=== PATIENT | male | born 1985 ===

== ENCOUNTER 2017-01-12 01:06 | Emergency (ER) | payer OTHER ==
[2017-01-12 01:06] VITALS: BMI 22.6
[2017-01-12 01:59] VITALS: BP 134/70; PULSE 108; RESP 16; TEMP 98.6; O2SAT 98
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
== END 2017-01-12 03:35 ==
LOC: H.ER 01:06
DX: F32.9 Major depressive disorder, single episode, unspecified (principal)

== ENCOUNTER 2017-01-22 14:25 | Inpatient (IN) | payer MEDICAID, OTHER ==
[2017-01-22 14:26] VITALS: BMI 22.6
[2017-01-22 16:14] LABS: BASO # 0.1 K/uL (0.0-0.2); EOS # 0.4 K/uL (0.0-0.7); EOS % 3.9 % (0.0-4.0); HEMATOCRIT 45.7 % (35.0-51.0); LYMPH # 2.1 K/uL (1.0-4.3); MEAN CELL VOLUME 87.9 fl (80.0-94.0); MEAN CORPUSCULAR HEMOGLOBIN 29.5 pg (27.0-31.0); MEAN CORPUSCULAR HGB CONC 33.5 g/dL (33.0-37.0); MEAN PLATELET VOLUME 9.3 fl (7.2-11.7); MONO # 0.7 K/uL (0.0-0.8); NEUT # 5.9 K/uL (1.8-7.0); NEUT % 64.1 % (50.0-75.0); NRBC % 0.2 % (0.0-0.0); WHITE BLOOD COUNT 9.2 K/uL (4.8-10.8)
--- NOTE | 2017-01-22 16:21 | ED PDOC ---
HPI: Psych/Substance Abuse Time Seen by Provider: 01/22/17 15:12 Chief Complaint (Nursing): Psychiatric Evaluation Chief Complaint (Provider): Psychiatric Evaluation History Per: Patient History/Exam Limitations: no limitations Onset/Duration Of Symptoms: Days (x 3) Current Symptoms Are (Timing): Still Present Associated Symptoms: Anger, Depression, Suicidal Thoughts Additional Complaint(s): Jose is a 31 y/o male with no past medical history who states for the past several days hes been feeling depressed. Patient admits he gets angry at his family and bangs on handley. For the past 2 days hes been feeling like ending his life, however he has no specific plan. States when he feels this way, he usually drinks beer. Denies any drug use or smoking. He denies any past medical or psychiatric history, but was seen here for similar symptoms. He states at prior visits he did not express himself fully. He is not taking any medications. PMD: Dr. Horacio Weems Past Medical History Reviewed: Historical Data, Nursing Documentation, Vital Signs Vital Signs: Last Vital Signs Temp 98.8 F 01/22/17 14:48 Pulse 106 H 01/22/17 14:48 Resp 20 01/22/17 14:48 BP 152/98 H 01/22/17 14:48 Pulse Ox 96 01/22/17 14:48 - Medical History PMH: Depression, Fractures Denies: Diabetes, Hepatitis, HIV, HTN, Chronic Kidney Disease, Seizures, Sexually Transmitted Disease - Family History Family History: States: Unknown Family Hx - Social History Current smoker - smoking cessation education provided: No Alcohol: < 2 Drinks/Day Drugs: Denies - Immunization History Hx Tetanus Toxoid Vaccination: No - Home Medications Home Medications: Ambulatory Orders Medication Instructions Recorded Citalopram [celEXA] 20 mg PO DAILY #30 tab 10/27/15 Cephalexin [cephalexin] 500 mg PO Q6 #28 cap 01/21/16 Ibuprofen [Motrin] 600 mg PO Q6 #20 tab 02/08/16 - Allergies Allergies/Adverse Reactions: Allergies Allergy/AdvReac Type Severity Reaction Status Date / Time No Known Allergies Allergy Verified 01/12/17 01:45 Review of Systems ROS Statement: Except As Marked, All Systems Reviewed And Found Negative Psych: Positive for: Depression, Suicidal ideation (with no plan) Physical Exam - Reviewed Nursing Documentation Reviewed: Yes Vital Signs Reviewed: Yes - Physical Exam Appears: Positive for: Non-toxic, No Acute Distress Head Exam: Positive for: ATRAUMATIC, NORMAL INSPECTION, NORMOCEPHALIC Skin: Positive for: Normal Color, Warm, Dry Eye Exam: Positive for: EOMI, Normal appearance, PERRL Neck: Positive for: Normal, Supple Cardiovascular/Chest: Positive for: Regular Rate, Rhythm. Negative for: Murmur Respiratory: Positive for: Normal Breath Sounds. Negative for: Accessory Muscle Use, Respiratory Distress Gastrointestinal/Abdominal: Positive for: Normal Exam, Soft. Negative for: Tenderness Extremity: Positive for: Normal ROM, Capillary Refill (< 2 sec). Negative for: Pedal Edema, Deformity Neurologic/Psych: Positive for: Alert, Oriented (x3), Mood/Affect (Flat). Negative for: Motor/Sensory Deficits - Laboratory Results Result Diagrams: 01/22/17 16:10 01/22/17 16:09 - ECG ECG: Positive for: Interpreted By Me, Viewed By Me Interpretation Of ECG: Normal sinus rhythm at 92 bpm, no ST elevation. No T wave abnormalities. O2 Sat by Pulse Oximetry: 96 (RA) Pulse Ox Interpretation: Normal - Radiology X-Ray: Read By Radiologist X-Ray Interpretation: No Acute Disease Medical Decision Making Medical Decision Making: Time: 15:38 Initial Plan: --EKG --Alcohol serum --Urine drug screen --CMP --CBC --Chest X-Ray --Urinalysis --placed on 1:1 observation --Pending crisis evaluation CHEST X-RAY Report Date : 01/22/2017 17:16:35 My Comment : HISTORY: psych clearance COMPARISON: Chest x-ray performed 10/17/15 TECHNIQUE: Chest PA and lateral FINDINGS: LUNGS: No focal consolidation. Please note that chest x-ray has limited sensitivity for the detection of pulmonary masses. PLEURA: No significant pleural effusion identified. No definite pneumothorax . CARDIOVASCULAR: The cardiomediastinal silhouette appears within normal limits of size. OSSEOUS STRUCTURES: No acute osseous abnormality identified. VISUALIZED UPPER ABDOMEN: Unremarkable. OTHER FINDINGS: None. IMPRESSION: No focal consolidation, significant pleural effusion, or definite pneumothorax identified. Time: 17:25 Discussed with pack worker and patient is to be admitted inpatient for diagnosis of depression, per Dr. Cruz. Labs reviewed, and are grossly normal. Still pending UDS. Chest X-Ray negative. Time: 18:30 Labs reviewed, toxicology is negative. Urine shows RBC present. Patient evaluated by crisis who advises patient to be admitted under Dr. Cruz. Patient is medically stable for psychiatric admission. Admission orders placed. Scribe Attestation: Documented by Nakia Romero, acting as a scribe for Vielka Sherman PA-C Provider Scribe Attestation: All medical record entries made by the Scribe were at my direction and personally dictated by me. I have reviewed the chart and agree that the record accurately reflects my personal performance of the history, physical exam, medical decision making, and the department course for this patient. I have also personally directed, reviewed, and agree with the discharge instructions and disposition. Disposition - Clinical Impression Clinical Impression: Depression - Patient ED Disposition Is Patient to be Admitted: Yes Counseled Patient/Family Regarding: Studies Performed - Disposition Disposition Time: 17:47 Condition: STABLE - Pt Status Changed To: Hospital Disposition Of: Inpatient - Admit Certification Admit to Inpatient:: After my assessment, the patient will require hospitalization for at least two midnights. This is because of the severity of symptoms shown, intensity of services needed, and/or the medical risk in this patient being treated as an outpatient. - POA Present On Arrival: None
[2017-01-22 16:43] LABS: ALCOHOL SERUM < 10 mg/dl (0-10); ALKALINE PHOSPHATASE 79 U/L (38-126); ALT/SGPT 37 U/L (21-72); AST/SGOT 24 U/L (17-59); BILIRUBIN,TOTAL 0.4 mg/dl (0.2-1.3); BLOOD UREA NITROGEN 15 mg/dl (9-20); CALCIUM 10.3 mg/dL (8.4-10.2); CARBON DIOXIDE 26 mmol/L (22-30); CHLORIDE 103 mmol/L (98-107); GFR AFRICAN-AMERICAN > 60; GLUCOSE,RANDOM 92 mg/dL (75-110); SODIUM 142 mmol/l (132-148); TOTAL PROTEIN 8.5 G/DL (6.3-8.2)
[2017-01-22 16:49] LABS: ALB/GLOB RATIO 1.4 (1.0-2.1)
--- NOTE | 2017-01-22 17:18 | RAD ---
HISTORY: psych clearance COMPARISON: Chest x-ray performed 10/17/15 TECHNIQUE: Chest PA and lateral FINDINGS: LUNGS: No focal consolidation. Please note that chest x-ray has limited sensitivity for the detection of pulmonary masses. PLEURA: No significant pleural effusion identified. No definite pneumothorax . CARDIOVASCULAR: The cardiomediastinal silhouette appears within normal limits of size. OSSEOUS STRUCTURES: No acute osseous abnormality identified. VISUALIZED UPPER ABDOMEN: Unremarkable. OTHER FINDINGS: None. IMPRESSION: No focal consolidation, significant pleural effusion, or definite pneumothorax identified.
[2017-01-22 18:17] LABS: RBC URINE 6 /hpf (0-3); URINE BACTERIA RARE (<OCC); URINE BILIRUBIN NEGATIVE (NEGATIVE); URINE BLOOD SMALL (NEGATIVE); URINE COLOR YELLOW (YELLOW); URINE GLUCOSE (UA) NEG (Normal); URINE KETONE NEGATIVE (NEGATIVE); URINE LEUKOCYTE ESTERASE NEG Leu/uL (Negative); URINE PROTEIN NEGATIVE (NEGATIVE); URINE UROBILINOGEN 0.2-1.0 mg/dL (0.2-1.0); WBC URINE < 1 /hpf (0-5)
[2017-01-22] MEDS ORDERED: Magnesium Hydroxide Susp 30 ml UD PO PRN (20:44)
[2017-01-22] MEDS ORDERED: Alum-Mag Hydrox-Simethicone Susp (30 mL) PO PRN (20:44)
[2017-01-22] MEDS ORDERED: DiphenhydrAMINE 50 mg/ml Inj IM PRN (20:44)
--- NOTE | 2017-01-22 21:18 | PCM.BM ---
Addendum entered and electronically signed by Marian Calloway MSW 02/01/17 17: 18: Treatment Plan Review - Problem Alteren Sleep Pattern Time Initiated: 21:16 Medication Non-adherence Time Initiated: 21:17 Original Note: <Mee Gilliam - Last Filed: 01/22/17 21:15> Treatment Plan Problems - Problems identified on initial assessmt Alteren Sleep Pattern Date Initiated: 01/22/17 Time Initiated: 21:16 Assessment reference: NA Status: Active Medication Non-adherence Date Initiated: 01/22/17 Time Initiated: 21:17 Assessment reference: NA Status: Active Treatment assets and liabiliti Patient Assests: adapts well, self-reliant, good support system, negotiates basic needs Patient Liabilities: substance abuse, other (noncompliance with meds) - Milieu Protocol Maintain good personal hygiene: daily Assist patient to perform ADL's, every shift Encourage regular showers, every shift Remind patient to perform daily oral care Maintain personal safety: every shift Educate patient to report safety concerns to staff, every shift Monitor environment for contraband/sharps Medication safety: Monitor for expected outcome, potential side effects: every shift, Assess barriers to learning: daily, Assess readiness for medication education: every shift <Jaison Nelson - Last Filed: 01/25/17 15:20> Discharge/Continuing Care - Additional Comments 01/25/17 15:20 Pt kept reporting that he felt that he still needed additional help and more intense therapy than what PHP was willing to provide. Pt reported that he does not want to be aggressive anymore and wants to work on himself. - Treatment Team Participation Was Patient/Family/SO present at Treatment Team Meeting: Yes <Marian Calloway - Last Filed: 02/01/17 17:18> Treatment assets and liabiliti Patient Assests: adapts well, cooperative, self-reliant, ADL independent, physically healthy, good support system, negotiates basic needs Patient Liabilities: relationship conflicts, substance abuse, auditory impairment, other (noncompliance with meds-learning disability) Family Contact Family involvement: Family/SO is involved Family contact: Patient agrees to contact, Family has been contacted by patient , Telephone contact initiated by staff Family contact name: Ashley (mother) Family contacted how many times per week?: 2 Family contact comment: [phone]. Child Psychology Teacher placed call to patients mother to discuss patients progress on 3NP, collect further collateral and address family concerns. Child Psychology Teacher left brief message on unidentified voicemail requestin return phone call. Child Psychology Teacher awaiting response. - Outside Agency Agency 1 Care involvment: Following patient during stay, Other Agency contact name: [facility] ([place]) Agency contact number: [phone] - Goals for Treatment Patient goals for treatment: Patient to continue stabilization on 3NP through medication management and group/supportive therapy. Patient to be encouraged to attend groups regularly to promote self-awareness, sobriety, and improve insight , coping skills and self-esteem. Patient to be provided with referral for appropriate level of aftercare to reduce risk of future hospitalizations and ensure safety in the community. Discharge/Continuing Care - Education Needs Education Needs: Family Medication, Family Coping Skills, Family Anger Management skills, Family Community resources, Family Aftercare Safety Plan, Patient Medication, Patient Coping Skills, Patient Anger Management skills, Patient Community resources, Patient Aftercare Safety Plan - Discharge Discharge Criteria: Tolerates medication w/o severe side effects, Free of Suicidal thoughts, Free of agitation, Normal sleep pattern, Ability to care for self, Reduction of target symptoms Discharge to:: Home, With Family <Nancy Palomino - Last Filed: 02/02/17 09:12> - Diagnosis (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
[2017-01-22] MEDS ORDERED: Pneumococcal 23-Valent Vaccine IM ONE (22:33)
[2017-01-22 22:56] VITALS: O2SAT 96
[2017-01-23 07:08] LABS: CHOLESTEROL 221 mg/dL (0-199)
--- NOTE | 2017-01-23 07:45 | CARD ---
APPROVED REPORT EKG Measurement Heart [id number] <Conclusion> Normal sinus rhythm Normal ECG
--- NOTE | 2017-01-23 08:42 | CP.PCM.CON ---
Addendum entered and electronically signed by Alejandra Hernández MD 01/23/17 09: 25: Original Note: History of Present Illness - History of Present Illness History of Present Illness: Hospitalist consult note Jose is a 31 y/o male with no PMH who was admitted due to been feeling depressed for the past several days. Patient admits he gets angry with his family and also reports hes been feeling like ending his life, however he has no specific plan. Denies any drug use or smoking. He denies any past medical but admits several suicidal attempts in the past. Denies taking any medication , also denies recent fever, nausea, vomiting, chest pain, palpitations, sob, edema, headache, abdominal pain or any other pain. No urinary symptoms, diarrhea or constipation. PMH: none FMH: none Hosp: previous similar episodes Meds: denies Allergies: NKDA SH: denies tobacco, illicit drugs; etoh occasional. Review of Systems - Review of Systems Review of Systems: Reviewed and negative except as HPI Past Patient History - Infectious Disease Hx of Infectious Diseases: None - Past Medical History & Family History Past Medical History?: No - Past Social History Alcohol: < 2 Drinks/Day Drugs: Denies - PSYCHIATRIC Hx Depression: Yes - SURGICAL HISTORY Hx Surgeries: Yes Hx Open Reduction Internal Fixation: Yes (hip/femur fracture) - ANESTHESIA Hx Anesthesia: Yes Hx Anesthesia Reactions: No Hx Malignant Hyperthermia: No Meds Allergies/Adverse Reactions: Allergies Allergy/AdvReac Type Severity Reaction Status Date / Time No Known Allergies Allergy Verified 01/12/17 01:45 - Medications Medications: Current Medications Acetaminophen (Tylenol 325mg Tab) 650 mg PO Q4 PRN PRN Reason: Pain, moderate (4-7) Al Hydrox/Mg Hydrox/Simethicone (Maalox Plus 30 Ml) 30 ml PO Q4 PRN PRN Reason: Dyspepsia Diphenhydramine HCl (Benadryl) 50 mg IM Q6 PRN PRN Reason: Extrapyramidal S/S Unable PO Diphenhydramine HCl (Benadryl) 50 mg PO Q6 PRN PRN Reason: Extrapyramidal Symptoms Diphenhydramine HCl (Benadryl) 50 mg PO HS PRN PRN Reason: Sleep Haloperidol (Haldol) 5 mg PO Q4 PRN PRN Reason: Agitation Haloperidol Lactate (Haldol) 5 mg IM Q4 PRN PRN Reason: Agitation, Unable to Take PO Lorazepam (Ativan) 2 mg IM Q4 PRN PRN Reason: Anxiety/Agitation,Unable PO Lorazepam (Ativan) 1 mg PO Q4 PRN PRN Reason: Anxiety/Agitation Magnesium Hydroxide (Milk Of Magnesia) 30 ml PO HS PRN PRN Reason: Constipation Physical Exam - Constitutional Appears: No Acute Distress - Head Exam Head Exam: ATRAUMATIC, NORMOCEPHALIC - Eye Exam Eye Exam: EOMI, PERRL - Respiratory Exam Respiratory Exam: Clear to Auscultation Bilateral, NORMAL BREATHING PATTERN - Cardiovascular Exam Cardiovascular Exam: REGULAR RHYTHM, +S1, +S2 - GI/Abdominal Exam GI & Abdominal Exam: Normal Bowel Sounds, Soft. absent: Distended, Tenderness - Extremities Exam Extremities exam: Negative for: calf tenderness, pedal edema - Skin Skin Exam: Dry, Normal Color, Warm Results - Vital Signs Recent Vital Signs: Last Vital Signs Temp 98.2 F 01/22/17 21:47 Pulse 70 01/22/17 21:47 Resp 16 01/22/17 21:47 BP 141/94 H 01/22/17 21:47 Pulse Ox 96 01/22/17 23:06 - Labs Result Diagrams: 01/22/17 16:10 01/22/17 16:09 Labs: Laboratory Results - last 24 hr 01/22/17 01/22/17 01/22/17 16:09 16:10 17:57 WBC 9.2 RBC 5.20 Hgb 15.3 Hct 45.7 MCV 87.9 MCH 29.5 MCHC 33.5 RDW 13.0 Plt Count 277 MPV 9.3 Neut % (Auto) 64.1 Lymph % (Auto) 23.0 [place] % (Auto) 8.0 Eos % (Auto) 3.9 Baso % (Auto) 1.0 Neut # 5.9 Lymph # 2.1 [place] # 0.7 Eos # 0.4 Baso # 0.1 Sodium 142 Potassium 4.0 Chloride 103 Carbon Dioxide 26 Anion Gap 17 BUN 15 Creatinine 0.8 Est GFR ( Amer) > 60 Est GFR (Non-Af Amer) > 60 Random Glucose 92 Calcium 10.3 H Total Bilirubin 0.4 AST 24 ALT 37 Alkaline Phosphatase 79 Total Protein 8.5 H Albumin 5.0 Globulin 3.6 Albumin/Globulin Ratio 1.4 Triglycerides Cholesterol LDL Cholesterol Direct HDL Cholesterol Urine Color Urine Clarity Urine pH Ur Specific [place] Urine Protein Urine Glucose (UA) Urine Ketones Urine Blood Urine Nitrate Urine Bilirubin Urine Urobilinogen Ur Leukocyte Esterase Urine RBC (Auto) Urine Microscopic WBC Ur Squamous Epith Cells Urine Bacteria Urine Opiates Screen Negative Urine Methadone Screen Negative Ur Barbiturates Screen Negative Ur Phencyclidine Scrn Negative Ur Amphetamines Screen Negative U Benzodiazepines Scrn Negative U Oth Cocaine Metabols Negative U Cannabinoids Screen Negative Alcohol, Quantitative < 10 01/22/17 01/23/17 17:57 06:45 WBC RBC Hgb Hct MCV MCH MCHC RDW Plt Count MPV Neut % (Auto) Lymph % (Auto) [place] % (Auto) Eos % (Auto) Baso % (Auto) Neut # Lymph # [place] # Eos # Baso # Sodium Potassium Chloride Carbon Dioxide Anion Gap BUN Creatinine Est GFR ( Amer) Est GFR (Non-Af Amer) Random Glucose Calcium Total Bilirubin AST ALT Alkaline Phosphatase Total Protein Albumin Globulin Albumin/Globulin Ratio Triglycerides 125 Cholesterol 221 H LDL Cholesterol Direct 105 HDL Cholesterol 92 H Urine Color Yellow Urine Clarity Clear Urine pH 6.0 Ur Specific [place] 1.019 Urine Protein Negative Urine Glucose (UA) Neg Urine Ketones Negative Urine Blood Small Urine Nitrate Negative Urine Bilirubin Negative Urine Urobilinogen 0.2-1.0 Ur Leukocyte Esterase Neg Urine RBC (Auto) 6 H Urine Microscopic WBC < 1 Ur Squamous Epith Cells 1 Urine Bacteria Rare Urine Opiates Screen Urine Methadone Screen Ur Barbiturates Screen Ur Phencyclidine Scrn Ur Amphetamines Screen U Benzodiazepines Scrn U Oth Cocaine Metabols U Cannabinoids Screen Alcohol, Quantitative Assessment & Plan - Assessment and Plan (Free Text) Assessment: 31 yo M patient w/o PMH admitted for Depression and suicidal ideation. Plan: Management by Psychiatry.
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
[2017-01-24 08:12] LABS: T4 8.7 ug/dl (5.5-11.0)
[2017-01-24 08:26] LABS: THYROID STIMULATING HORMONE 0.96 mIU/ML (0.46-4.68)
--- NOTE | 2017-01-24 10:31 | PCM.PYCHPN ---
Psychiatric Progress Note - Psychiatric Progress Note Patient seen today, length of contact: pt evaluated discussed with team chart reviewed Patient Chief Complaint: I AM STILL DEPRESSED Problems Identified/Issues Discussed: PT SEEN IN BED, ISOLATIVE UNKEMPT, CONTINUES TO REPORTE FEELING DEPRESSED AND ANXIOUS, DENIED ANY CURRENT S/H I DENIED PERCEPTUAL DISTURBANCES Medical Problems: MULTIPLE INPATIENT HOSPITALIZATIONS DUE TO DEPRESSION ONE PREVIOUS SUICIDAL ATTEMPTS DSM 5 Symptoms Update: DEPRESSION ALCOHOL USE DISORDER Medication Change: Yes (INCREASE LEXAPRO) Medical Record Reviewed: Yes Mental Status Examination - Cognitive Function Orientation: Person, Place Attention: WNL Concentration: WNL Association: WNL Fund of Knowledge: Poor Decription of patient's judgement and insights: FAIR INSIGHT AND POOR JUDGEMENT - Mood Mood: Depressed, Anxious - Affect Affect: Depressed - Speech Speech: Soft - Formal Thought Process Formal Thought Process: Circumstantial Psychotic Thoughts and Behaviors: PT DENIED PSYCHOTIC SYMPTOMS, NON ELICITED - Suicidal Ideation Suicidal Ideation: No - Homicidal Ideation Homicidal Ideation: No Goal/Treatment Plan - Goal/Treatment Plan Need for Continued Stay: Severe depression anxiety, Discharge may exacerbated symptoms Progress Toward Problem(s) and Goals/Treatment Plan: INCREASE LEXAPRO TO 10 MG NEURONTIN 100MG TID GROUP AND SUPPORTIVE THERAPY Estimated Date of D/C: 01/29/17
--- NOTE | 2017-01-25 16:00 | PCM.PYCHPN ---
Psychiatric Progress Note - Psychiatric Progress Note Patient seen today, length of contact: pt evaluated discussed with team chart reviewed Patient Chief Complaint: I NEED TO WORK ON MY DRINKING PROBLEM Problems Identified/Issues Discussed: PT SEEN IN TREATMENT TEAM, REPORTED CONTINUES TO FEEL DEPRESSED, HE HAS MULTIPLE PROBLEMS TO WORK ON, PT REQUESTING HELP WITH HIS ALCOHOL USE,PT OPENED TO TREATMENT WITH BETTER INSIGHT , DENIED ANY CURRENT S/HI DENIED PERCEPTUAL DISTURBANCES NO REPORTE DSIDE EFFECTS OF MEDICATIONS Medical Problems: MULTIPLE INPATIENT HOSPITALIZATIONS DUE TO DEPRESSION ONE PREVIOUS SUICIDAL ATTEMPTS DSM 5 Symptoms Update: DEPRESSION ALCOHOL USE DISORDER Medication Change: No Medical Record Reviewed: Yes Mental Status Examination - Cognitive Function Orientation: Person, Place Attention: WNL Concentration: WNL Association: WNL Fund of Knowledge: Poor Decription of patient's judgement and insights: FAIR INSIGHT AND POOR JUDGEMENT - Mood Mood: Depressed, Anxious - Affect Affect: Depressed - Speech Speech: Soft - Formal Thought Process Formal Thought Process: Circumstantial Psychotic Thoughts and Behaviors: PT DENIED PSYCHOTIC SYMPTOMS, NON ELICITED - Suicidal Ideation Suicidal Ideation: No - Homicidal Ideation Homicidal Ideation: No Goal/Treatment Plan - Goal/Treatment Plan Need for Continued Stay: Severe depression anxiety, Discharge may exacerbated symptoms Progress Toward Problem(s) and Goals/Treatment Plan: CONTINUE WITH LEXAPRO TO 10 MG NEURONTIN 100MG TID GROUP AND SUPPORTIVE THERAPY REFERRAL TO REHAB ON DISCHARGE Estimated Date of D/C: 01/29/17
--- NOTE | 2017-01-26 10:46 | PCM.PYCHPN ---
Psychiatric Progress Note - Psychiatric Progress Note Patient seen today, length of contact: pt evaluated discussed with team chart reviewed Patient Chief Complaint: pt remains depressed and was admitted for making suicidal atempt by cutting his wrist and has been hearing voices telling him to hurt himself .pt denies side effects to meds but still gets depressed and frustrated and cant deal with it but is able to contract for safety. Problems Identified/Issues Discussed: depression,hallucinations,suicidal attempt Medication Change: Yes (increase lexapro to 15 mg) Medical Record Reviewed: Yes Mental Status Examination - Cognitive Function Orientation: Person, Place Attention: Poor Concentration: Poor Association: WNL Fund of Knowledge: Poor - Mood Mood: Depressed, Anxious - Affect Affect: Constricted, Depressed - Speech Speech: Appropriate, Soft - Formal Thought Process Formal Thought Process: Circumstantial - Suicidal Ideation Suicidal Ideation: No - Homicidal Ideation Homicidal Ideation: No Goal/Treatment Plan - Goal/Treatment Plan Need for Continued Stay: Severe depression anxiety, Discharge may exacerbated symptoms Progress Toward Problem(s) and Goals/Treatment Plan: will increase lexapro to 15 mg daily to stabilize the depression and engage pt in therapy and groups. d/c plans as per dr salcedo Estimated Date of D/C: 01/29/17
--- NOTE | 2017-01-28 13:40 | PCM.PYCHPN ---
Psychiatric Progress Note - Psychiatric Progress Note Patient seen today, length of contact: pt evaluated discussed with team chart reviewed Patient Chief Complaint: I STILL FEEL I HAVE NO INTEREST IN LIFE Problems Identified/Issues Discussed: PT reported he continues to feel depressed. stated he thinks a lot about his dad and wants to join him , pt reported having passive suicidal ideation without a plan would not do it on the unit, pt continues to attend groups, denied perceptual disturbances, denied homicidal ideations and no reported side effects of the medications Medical Problems: MULTIPLE INPATIENT HOSPITALIZATIONS DUE TO DEPRESSION ONE PREVIOUS SUICIDAL ATTEMPTS DSM 5 Symptoms Update: major depression alcohol induced mood disorder Medication Change: Yes (start abilify) Medical Record Reviewed: Yes Mental Status Examination - Cognitive Function Orientation: Person, Place Attention: WNL Association: WNL Fund of Knowledge: Poor - Mood Mood: Depressed, Anxious - Affect Affect: Constricted, Depressed - Speech Speech: Appropriate, Soft - Formal Thought Process Formal Thought Process: Circumstantial Psychotic Thoughts and Behaviors: pt denied perceptual disturbances, non elicited - Suicidal Ideation Suicidal Ideation: No - Homicidal Ideation Homicidal Ideation: No Goal/Treatment Plan - Goal/Treatment Plan Need for Continued Stay: Severe depression anxiety, Discharge may exacerbated symptoms Progress Toward Problem(s) and Goals/Treatment Plan: CONTINUE WITH LEXAPRO 15 MG NEURONTIN 100MG TID start abilify 2mg for augmentation GROUP AND SUPPORTIVE THERAPY REFERRAL TO REHAB ON DISCHARGE Estimated Date of D/C: 01/29/17
--- NOTE | 2017-01-29 14:35 | PCM.PYCHPN ---
Psychiatric Progress Note - Psychiatric Progress Note Patient seen today, length of contact: pt evaluated discussed with team chart reviewed Patient Chief Complaint: I HAVE ALOT OF ISSUES TO DISCUSS IN THERAPY Problems Identified/Issues Discussed: PT reported he continues to feel depressed. PT REPORTED HE NEEDS INDIVIDUAL THERAPY ON DISCHARGE, DISCUSSED WITH PATIENT POSSIBLE EFFECT OF ALCOHOL ON HIS MOOD , QNDAND NEED TO ATTEND AA MEETINGS ON DISCHARGE PT DENIED ANY CURRENT S/H I DENIED PERCEPTUAL DISTURBANCES, NO REPORTED SIDE EFFECTS OF MEDICATIONS Medical Problems: MULTIPLE INPATIENT HOSPITALIZATIONS DUE TO DEPRESSION ONE PREVIOUS SUICIDAL ATTEMPTS Medication Change: No Medical Record Reviewed: Yes Mental Status Examination - Cognitive Function Orientation: Person, Place Attention: WNL Association: WNL Fund of Knowledge: Poor - Mood Mood: Depressed, Anxious - Affect Affect: Constricted, Depressed - Speech Speech: Appropriate, Soft - Formal Thought Process Formal Thought Process: Circumstantial Psychotic Thoughts and Behaviors: pt denied perceptual disturbances, non elicited - Suicidal Ideation Suicidal Ideation: No - Homicidal Ideation Homicidal Ideation: No Goal/Treatment Plan - Goal/Treatment Plan Need for Continued Stay: Severe depression anxiety, Discharge may exacerbated symptoms Progress Toward Problem(s) and Goals/Treatment Plan: CONTINUE WITH LEXAPRO 15 MG NEURONTIN 100MG TID abilify 2mg for augmentation GROUP AND SUPPORTIVE THERAPY REFERRAL TO REHAB ON DISCHARGE Estimated Date of D/C: 01/29/17
--- NOTE | 2017-01-30 18:35 | PCM.PYCHPN ---
Psychiatric Progress Note - Psychiatric Progress Note Patient seen today, length of contact: pt evaluated discussed with team chart reviewed Patient Chief Complaint: I HSTILL FEEL LIKE I WOULD RATHER NOT BE ALIVE Problems Identified/Issues Discussed: PT reported he continues to feel depressed. continues to have passive suicidal ideations without a plan, anhedonic, denied psychotic symptoms, denied homicidal ideations encouraged pt to attend groups Medical Problems: MULTIPLE INPATIENT HOSPITALIZATIONS DUE TO DEPRESSION ONE PREVIOUS SUICIDAL ATTEMPTS DSM 5 Symptoms Update: MAJOR DEPRESSION DEPENDENT PERSONALITY ALCOHOL USE DISORDER Medication Change: Yes (increase lexapro and abilify) Medical Record Reviewed: Yes Mental Status Examination - Cognitive Function Orientation: Person, Place Attention: WNL Association: WN Fund of Knowledge: Poor - Mood Mood: Depressed, Anxious - Affect Affect: Constricted, Depressed - Speech Speech: Appropriate, Soft - Formal Thought Process Formal Thought Process: Circumstantial Psychotic Thoughts and Behaviors: pt denied perceptual disturbances, non elicited - Suicidal Ideation Suicidal Ideation: No - Homicidal Ideation Homicidal Ideation: No Goal/Treatment Plan - Goal/Treatment Plan Need for Continued Stay: Severe depression anxiety, Discharge may exacerbated symptoms Progress Toward Problem(s) and Goals/Treatment Plan: increase LEXAPRO to 20mg MG NEURONTIN 100MG TID increase abilify to 5mg for augmentation GROUP AND SUPPORTIVE THERAPY REFERRAL TO REHAB ON DISCHARGE Estimated Date of D/C: 01/29/17
--- NOTE | 2017-01-31 17:43 | PCM.PYCHPN ---
Psychiatric Progress Note - Psychiatric Progress Note Patient seen today, length of contact: pt evaluated discussed with team chart reviewed Patient Chief Complaint: I need help with my anger Problems Identified/Issues Discussed: PT reported today feeling less depressed , relates that to the help of medications and attending the groups, pt showing more insight into his illness and able to verbalize his goals , denied psychotic symptoms, denied homicidal ideations no reported side effects of medications DSM 5 Symptoms Update: major depression alcohol induced mood disorder alcohol use disorder Medication Change: No Medical Record Reviewed: Yes Mental Status Examination - Cognitive Function Orientation: Person, Place Attention: WNL Association: WNL Fund of Knowledge: Poor - Mood Mood: Depressed, Anxious - Affect Affect: Constricted, Depressed - Speech Speech: Appropriate, Soft - Formal Thought Process Formal Thought Process: Circumstantial Psychotic Thoughts and Behaviors: pt denied perceptual disturbances, non elicited - Suicidal Ideation Suicidal Ideation: No - Homicidal Ideation Homicidal Ideation: No Goal/Treatment Plan - Goal/Treatment Plan Need for Continued Stay: Severe depression anxiety, Discharge may exacerbated symptoms Progress Toward Problem(s) and Goals/Treatment Plan: continue with LEXAPRO 20mg MG NEURONTIN 100MG TID abilify 5mg for augmentation GROUP AND SUPPORTIVE THERAPY REFERRAL TO REHAB ON DISCHARGE Estimated Date of D/C: 01/29/17
--- NOTE | 2017-02-01 14:03 | PCM.PYCHPN ---
Psychiatric Progress Note - Psychiatric Progress Note Patient seen today, length of contact: pt evaluated discussed with team chart reviewed Patient Chief Complaint: I am trying to work on my negative thoughts Problems Identified/Issues Discussed: PT reported today feeling less depressed , discussed with pt importance of taking initiative in fighting his negative thoughts , pt showing more insight into his illness and able to verbalize his goals , denied psychotic symptoms, denied homicidal ideations no reported side effects of medications DSM 5 Symptoms Update: depression alcohol use disorder Medication Change: No Medical Record Reviewed: Yes Mental Status Examination - Cognitive Function Orientation: Person, Place Attention: WNL Association: WNL Fund of Knowledge: Poor - Mood Mood: Depressed, Anxious - Affect Affect: Constricted, Depressed - Speech Speech: Appropriate, Soft - Formal Thought Process Formal Thought Process: Circumstantial Psychotic Thoughts and Behaviors: pt denied perceptual disturbances, non elicited - Suicidal Ideation Suicidal Ideation: No - Homicidal Ideation Homicidal Ideation: No Goal/Treatment Plan - Goal/Treatment Plan Need for Continued Stay: Severe depression anxiety, Discharge may exacerbated symptoms Progress Toward Problem(s) and Goals/Treatment Plan: continue with LEXAPRO 20mg MG NEURONTIN 100MG TID abilify 5mg for augmentation CBT provided GROUP AND SUPPORTIVE THERAPY REFERRAL TO REHAB ON DISCHARGE Estimated Date of D/C: 01/29/17
--- NOTE | 2017-02-02 09:16 | PCM.PYCHPN ---
Psychiatric Progress Note - Psychiatric Progress Note Patient seen today, length of contact: pt evaluated discussed with team chart reviewed Patient Chief Complaint: I had better sleep last night Problems Identified/Issues Discussed: PT reported today feeling less depressed ,related that to better sleep and feeling less anxious , pt showing more insight into his illness and the impact of alcohol on his mental healthand able to verbalize his goals , denied psychotic symptoms, denied homicidal ideations no reported side effects of medications Medical Problems: MULTIPLE INPATIENT HOSPITALIZATIONS DUE TO DEPRESSION ONE PREVIOUS SUICIDAL ATTEMPTS DSM 5 Symptoms Update: major depression recurrent alcohol induced mood disorder alcohol use disorder Medication Change: No Medical Record Reviewed: Yes Mental Status Examination - Cognitive Function Orientation: Person, Place Attention: WNL Association: WN Fund of Knowledge: Poor - Mood Mood: Depressed, Anxious - Affect Affect: Constricted, Depressed - Speech Speech: Appropriate, Soft - Formal Thought Process Formal Thought Process: Circumstantial Psychotic Thoughts and Behaviors: pt denied perceptual disturbances, non elicited - Suicidal Ideation Suicidal Ideation: No - Homicidal Ideation Homicidal Ideation: No Goal/Treatment Plan - Goal/Treatment Plan Need for Continued Stay: Severe depression anxiety, Discharge may exacerbated symptoms Progress Toward Problem(s) and Goals/Treatment Plan: continue with LEXAPRO 20mg MG NEURONTIN 100MG TID abilify 5mg for augmentation CBT provided GROUP AND SUPPORTIVE THERAPY REFERRAL TO REHAB ON DISCHARGE Estimated Date of D/C: 01/29/17
--- NOTE | 2017-02-03 09:17 | PCM.PYCHPN ---
Psychiatric Progress Note - Psychiatric Progress Note Patient seen today, length of contact: pt evaluated discussed with team chart reviewed Patient Chief Complaint: I am feeling better today Problems Identified/Issues Discussed: PT reported today feeling less depressed ,improved sleep, no changes in appetite , pt showing better insight into illness and realizes importance of being linked to rehab for the alcohol use disorder, denied any current S/H I denied percetual disturbances, no reported side effects of medications Medical Problems: non reported DSM 5 Symptoms Update: major depression alcohol use disorder alcohol induced mood dsorder Medication Change: No Medical Record Reviewed: Yes Mental Status Examination - Cognitive Function Orientation: Person, Place Attention: WNL Association: WN Fund of Knowledge: Poor - Mood Mood: Neutral - Affect Affect: Constricted - Speech Speech: Appropriate, Soft - Formal Thought Process Formal Thought Process: Circumstantial Psychotic Thoughts and Behaviors: pt denied perceptual disturbances, non elicited - Suicidal Ideation Suicidal Ideation: No - Homicidal Ideation Homicidal Ideation: No Goal/Treatment Plan - Goal/Treatment Plan Need for Continued Stay: Severe depression anxiety, Discharge may exacerbated symptoms Progress Toward Problem(s) and Goals/Treatment Plan: continue with LEXAPRO 20mg MG NEURONTIN 100MG TID abilify 5mg for augmentation CBT provided GROUP AND SUPPORTIVE THERAPY REFERRAL TO REHAB ON DISCHARGE Estimated Date of D/C: 01/29/17
--- NOTE | 2017-02-04 13:22 | PCM.PYCHPN ---
Psychiatric Progress Note - Psychiatric Progress Note Patient seen today, length of contact: pt evaluated discussed with team chart reviewed Patient Chief Complaint: I am working on my attitude so I can do better Problems Identified/Issues Discussed: pt on evaluation, calmer, cooperative, reported better mood , brighter affect, able to verbalize some goals, understands importance in being linked to rehab program and the negative impact of alcohol on his mental health, denied any current suicidal or homicidal ideations denied perceptual disturbances, no reported side effects of medications Medical Problems: non reported DSM 5 Symptoms Update: major depression 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 alcohol use disorder Medication Change: No Medical Record Reviewed: Yes Mental Status Examination - Cognitive Function Orientation: Person, Place Attention: WNL Association: WNL Fund of Knowledge: Poor - Mood Mood: Neutral - Affect Affect: Constricted - Speech Speech: Appropriate, Soft - Formal Thought Process Formal Thought Process: Circumstantial Psychotic Thoughts and Behaviors: pt denied perceptual disturbances, non elicited - Suicidal Ideation Suicidal Ideation: No - Homicidal Ideation Homicidal Ideation: No Goal/Treatment Plan - Goal/Treatment Plan Need for Continued Stay: Severe depression anxiety, Discharge may exacerbated symptoms Progress Toward Problem(s) and Goals/Treatment Plan: continue with LEXAPRO 20mg MG NEURONTIN 100MG TID abilify 5mg for augmentation CBT provided GROUP AND SUPPORTIVE THERAPY REFERRAL TO REHAB ON DISCHARGE Estimated Date of D/C: 01/29/17
[2017-02-05 09:05] VITALS: RESP 18
--- NOTE | 2017-02-05 14:16 | PCM.PYCHPN ---
Psychiatric Progress Note - Psychiatric Progress Note Patient seen today, length of contact: pt evaluated discussed with team chart reviewed Patient Chief Complaint: I am alright ready to get the help I need Problems Identified/Issues Discussed: pt on evaluation, calmer, cooperative, reported better mood , brighter affect, able to verbalize some goals, understands importance in being linked to rehab program and the negative impact of alcohol on his mental health, denied any current suicidal or homicidal ideations denied perceptual disturbances, no reported side effects of medications Medical Problems: non reported Diagnostic Results: major depression alcohol induced mood disorder alcohol use disorder Medication Change: No Medical Record Reviewed: Yes Mental Status Examination - Cognitive Function Orientation: Person, Place Attention: WNL Association: WNL Fund of Knowledge: Poor - Mood Mood: Neutral - Affect Affect: Constricted - Speech Speech: Appropriate, Soft - Formal Thought Process Formal Thought Process: Circumstantial Psychotic Thoughts and Behaviors: pt denied perceptual disturbances, non elicited - Suicidal Ideation Suicidal Ideation: No - Homicidal Ideation Homicidal Ideation: No Goal/Treatment Plan - Goal/Treatment Plan Need for Continued Stay: Severe depression anxiety, Discharge may exacerbated symptoms Progress Toward Problem(s) and Goals/Treatment Plan: continue with LEXAPRO 20mg MG NEURONTIN 100MG TID abilify 5mg for augmentation CBT provided GROUP AND SUPPORTIVE THERAPY REFERRAL TO REHAB ON DISCHARGE Estimated Date of D/C: 01/29/17
[2017-02-06 09:13] VITALS: BP 132/91; PULSE 89; TEMP 97
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
== END 2017-02-06 13:22 | disposition home or self-care (01) | DRG 751 ==
LOC: H.ER 14:25 → H.ERHOLD 17:47 → H.PSYCH 21:01
PROVIDERS: ADMIT Psychiatry & Neurology Psychiatry; ATTEND Psychiatry & Neurology Psychiatry
PROC: HZ52ZZZ Individual Psychotherapy for Substance Abuse Treatment, Cognitive-Behavioral (ICD-10-PCS; principal; 2017-01-22)
PROC: HZ59ZZZ Individual Psychotherapy for Substance Abuse Treatment, Supportive (ICD-10-PCS; 2017-01-22)
PROC: HZ57ZZZ Individual Psychotherapy for Substance Abuse Treatment, Motivational Enhancement (ICD-10-PCS; 2017-01-22)
PROC: GZHZZZZ Group Psychotherapy (ICD-10-PCS; 2017-01-22)
PROC: 3E0234Z Introduction of Serum, Toxoid and Vaccine into Muscle, Percutaneous Approach (ICD-10-PCS; 2017-01-24)
DX: F10.94 Alcohol use, unspecified with alcohol-induced mood disorder (principal); R45.851 Suicidal ideations; F32.9 Major depressive disorder, single episode, unspecified; Y90.0 Blood alcohol level of less than 20 mg/100 ml; Z23 Encounter for immunization; F41.9 Anxiety disorder, unspecified

== ENCOUNTER 2017-06-05 13:21 | Emergency (ER) | payer OTHER ==
[2017-06-05 13:21] VITALS: BMI 22.6
[2017-06-05 13:28] VITALS: BP 134/85; PULSE 82; RESP 16; TEMP 99; O2SAT 98
--- NOTE | 2017-06-05 13:55 | ED PDOC ---
HPI: Psych/Substance Abuse Time Seen by Provider: 06/05/17 13:45 Chief Complaint (Nursing): Psychiatric Evaluation Chief Complaint (Provider): Psychiatric Evaluation History Per: Patient History/Exam Limitations: no limitations Current Symptoms Are (Timing): Still Present Additional Complaint(s): Jose is a 31 y/o male with a history of anxiety and depression who presents to the ED from rehab because he has been having thoughts of hurting himself recently. Patient states he is tired of people laughing at him and not understanding his learning disability and medical problems. He says he doesn't want to hurt himself because of his family but he still gets thoughts of doing it. He has not specific plan at this time, only a general desire. Patient has hurt himself in the past by intentionally running into a fence. He denies thoughts of hurting others. PMD: Horacio Weems Past Medical History Reviewed: Historical Data, Nursing Documentation, Vital Signs Vital Signs: Last Vital Signs Temp 99.0 F 06/05/17 13:25 Pulse 82 06/05/17 13:25 Resp 16 06/05/17 13:25 BP 134/85 06/05/17 13:25 Pulse Ox 98 06/05/17 13:25 - Medical History PMH: Anxiety, Depression, Fractures Denies: Diabetes, Hepatitis, HIV, HTN, Chronic Kidney Disease, Seizures, Sexually Transmitted Disease - Family History Family History: States: Unknown Family Hx - Living Arrangements Living Arrangements: Other (adult rehab) - Social History Alcohol: None - Immunization History Hx Tetanus Toxoid Vaccination: No - Home Medications Home Medications: Ambulatory Orders Medication Instructions Recorded ARIPiprazole [Abilify] 5 mg PO DAILY 30 Days #30 tab 02/06/17 Escitalopram [Lexapro] 20 mg PO DAILY 30 Days #30 tab 02/06/17 Gabapentin [Neurontin] 100 mg PO TID 30 Days #90 cap 02/06/17 - Allergies Allergies/Adverse Reactions: Allergies Allergy/AdvReac Type Severity Reaction Status Date / Time No Known Allergies Allergy Verified 06/05/17 13:25 Review of Systems ROS Statement: Except As Marked, All Systems Reviewed And Found Negative Psych: Positive for: Suicidal ideation. Negative for: Other (homicidal ideation ) Physical Exam - Reviewed Nursing Documentation Reviewed: Yes Vital Signs Reviewed: Yes - Physical Exam Appears: Positive for: Well, Non-toxic, No Acute Distress Extremity: Positive for: Normal ROM Neurologic/Psych: Positive for: Alert, Oriented, Mood/Affect (comfortable, calm , cooperative, not agitated in ER) - ECG O2 Sat by Pulse Oximetry: 98 (RA) Pulse Ox Interpretation: Normal - Progress ED Course And Treament: seen by crisis cleared by Dr. Palomino. Diagnosis Depression Will arrange transport return to [facility]. Medical Decision Making Medical Decision Making: Time: 13:50 Initial Impression: Suicidal Ideation Initial Plan: --Crisis Evaluation --1:1 Observation Scribe Attestation: Documented by Estevan Lang, acting as a scribe for Rajendra Lazcano PA-C Provider Scribe Attestation: All medical record entries made by the Scribe were at my direction and personally dictated by me. I have reviewed the chart and agree that the record accurately reflects my personal performance of the history, physical exam, medical decision making, and the department course for this patient. I have also personally directed, reviewed, and agree with the discharge instructions and disposition. Disposition - Clinical Impression Clinical Impression: Depression - Patient ED Disposition Is Patient to be Admitted: No - Disposition Disposition: Other Institution Disposition Time: 14:59 Condition: FAIR Instructions: Depression, Adult (DC) Forms: [employer] (Chinese)
== END 2017-06-05 16:28 | disposition home or self-care (01) ==
LOC: H.ER 13:21
DX: F32.9 Major depressive disorder, single episode, unspecified (principal); F41.9 Anxiety disorder, unspecified; R45.851 Suicidal ideations; Z00.8 Encounter for other general examination

== ENCOUNTER 2017-07-30 17:31 | Inpatient (IN) | payer MEDICAID, OTHER ==
[2017-07-30 17:31] VITALS: BMI 22.6
--- NOTE | 2017-07-30 19:22 | ED PDOC ---
HPI: Psych/Substance Abuse Time Seen by Provider: 07/30/17 18:09 Chief Complaint (Nursing): Psychiatric Evaluation Chief Complaint (Provider): psychiatric evaluation ED Caveat: Intoxicated History Per: Patient History/Exam Limitations: no limitations Onset/Duration Of Symptoms: Days Current Symptoms Are (Timing): Still Present Modifying Factor(s): Alcohol Associated Symptoms: Depression, Suicidal Thoughts Additional Complaint(s): 31 year old male presents to the ED for psychiatric evaluation. Patient went to the police station because he felt suicidal. States he feels worthless and has no love life. States he drank 2 beers. Denies any suicidal plan, homicidal ideation, hallucinations, or injuries. PMD: No Family Provider Past Medical History Reviewed: Historical Data, Nursing Documentation, Vital Signs Vital Signs: Last Vital Signs Temp 98.6 F 07/30/17 17:35 Pulse 97 H 07/30/17 17:35 Resp 18 07/30/17 17:35 BP 117/70 07/30/17 17:35 Pulse Ox 99 07/30/17 17:35 - Medical History PMH: Anxiety, Depression, Fractures Denies: Diabetes, Hepatitis, HIV, HTN, Chronic Kidney Disease, Seizures, Sexually Transmitted Disease - Family History Family History: States: Unknown Family Hx - Immunization History Hx Tetanus Toxoid Vaccination: No - Home Medications Home Medications: Ambulatory Orders Medication Instructions Recorded ARIPiprazole [Abilify] 5 mg PO DAILY 30 Days #30 tab 02/06/17 Escitalopram [Lexapro] 20 mg PO DAILY 30 Days #30 tab 02/06/17 Gabapentin [Neurontin] 100 mg PO TID 30 Days #90 cap 02/06/17 - Allergies Allergies/Adverse Reactions: Allergies Allergy/AdvReac Type Severity Reaction Status Date / Time No Known Allergies Allergy Verified 06/05/17 13:25 Review of Systems ROS Statement: Except As Marked, All Systems Reviewed And Found Negative Psych: Negative for: Suicidal ideation (homicidal ideation), Other ( hallucinations) Physical Exam - Reviewed Nursing Documentation Reviewed: Yes Vital Signs Reviewed: Yes - Physical Exam Appears: Positive for: Well, Non-toxic, No Acute Distress Head Exam: Positive for: ATRAUMATIC, NORMAL INSPECTION, NORMOCEPHALIC Skin: Positive for: Normal Color, Warm, Dry Eye Exam: Positive for: EOMI, Normal appearance, PERRL ENT: Positive for: Normal ENT Inspection Neck: Positive for: Normal, Painless ROM, Supple. Negative for: Decreased ROM Cardiovascular/Chest: Positive for: Regular Rate, Rhythm. Negative for: Murmur Respiratory: Positive for: Normal Breath Sounds. Negative for: Decreased Breath Sounds, Accessory Muscle Use, Respiratory Distress Gastrointestinal/Abdominal: Positive for: Normal Exam, Bowel Sounds, Soft. Negative for: Tenderness, Guarding, Rebound Back: Positive for: Normal Inspection. Negative for: L CVA Tenderness, R CVA Tenderness Extremity: Positive for: Normal ROM. Negative for: Tenderness, Pedal Edema, Deformity Neurologic/Psych: Positive for: Alert, Oriented (x3), Other (slurred speech). Negative for: Motor/Sensory Deficits - Laboratory Results Result Diagrams: 07/30/17 20:03 07/30/17 20:03 - ECG O2 Sat by Pulse Oximetry: 99 (RA) Pulse Ox Interpretation: Normal - Progress ED Course And Treament: Pt. evaluated by crisis and arrangements made for admission. Medical Decision Making Medical Decision Making: Time: 1810 Initial Plan: --Alcohol serum --CMP --Drug Screen --Crisis evaluation --CBC w/ differential --1:1 Observation --Urinalysis --Reevaluation Scribe Attestation: Documented by Graham Mckeon, acting as a scribe for Marv Pillai PA-C Provider Scribe Attestation: All medical record entries made by the Scribe were at my direction and personally dictated by me. I have reviewed the chart and agree that the record accurately reflects my personal performance of the history, physical exam, medical decision making, and the department course for this patient. I have also personally directed, reviewed, and agree with the discharge instructions and disposition. Disposition - Clinical Impression Clinical Impression: Depression - Patient ED Disposition Is Patient to be Admitted: Yes - Disposition Disposition Time: 18:11 Condition: STABLE
[2017-07-30 20:15] LABS: URINE BILIRUBIN NEGATIVE (NEGATIVE); URINE BLOOD SMALL (NEGATIVE); URINE CLARITY CLEAR (Clear); URINE GLUCOSE (UA) NEG (Normal); URINE LEUKOCYTE ESTERASE NEG Leu/uL (Negative); URINE PROTEIN NEGATIVE (NEGATIVE); URINE UROBILINOGEN 0.2-1.0 mg/dL (0.2-1.0)
[2017-07-30 20:18] LABS: ALB/GLOB RATIO 1.3 (1.0-2.1); ALBUMIN 4.7 g/dL (3.5-5.0); ALT/SGPT 38 U/L (21-72); AST/SGOT 26 U/L (17-59); BLOOD UREA NITROGEN 19 mg/dl (9-20); CALCIUM 9.5 mg/dL (8.4-10.2); GFR AFRICAN-AMERICAN > 60; GFR NON-AFRICAN AMERICAN > 60
[2017-07-30 20:22] LABS: URINE COLOR LIGHT YELLOW (YELLOW)
[2017-07-30 20:23] LABS: BASO # 0.1 K/uL (0.0-0.2); BASO % 0.7 % (0.0-2.0); EOS # 0.4 K/uL (0.0-0.7); EOS % 4.8 % (0.0-4.0); HEMOGLOBIN 15.3 g/dL (12.0-18.0); LYMPH # 2.4 K/uL (1.0-4.3); LYMPH % 28.9 % (20.0-40.0); MEAN CELL VOLUME 87.7 fl (80.0-94.0); MEAN CORPUSCULAR HEMOGLOBIN 29.5 pg (27.0-31.0); MEAN CORPUSCULAR HGB CONC 33.6 g/dL (33.0-37.0); MEAN PLATELET VOLUME 9.8 fl (7.2-11.7); MONO # 0.5 K/uL (0.0-0.8); MONO % 6.5 % (0.0-10.0); NEUT # 4.9 K/uL (1.8-7.0); NEUT % 59.1 % (50.0-75.0); NRBC % 0.2 % (0.0-0.0); RBC 5.2 Mil/uL (4.40-5.90); RED CELL DISTRIBUTION WIDTH 13.9 % (11.5-14.5); WHITE BLOOD COUNT 8.3 K/uL (4.8-10.8)
[2017-07-30 20:26] LABS: BARBITURATES, UR NEGATIVE (NEGATIVE); BENZODIAZEPINES, UR NEGATIVE (NEGATIVE); OPIATES, UR NEGATIVE (NEGATIVE); PHENCYCLIDINE, UR NEGATIVE (NEGATIVE)
--- NOTE | 2017-07-31 01:17 | ED PDOC ---
- Laboratory Results Result Diagrams: 07/30/17 20:03 07/30/17 20:03 - ECG O2 Sat by Pulse Oximetry: 99 (RA) - Progress ED Course And Treament: Case endorsed to blog writer from Rosas POLLACK pending crisis eval Patient evaluated by fishing worker; to be admitted as per Dr. Cruz Medical Decision Making Medical Decision Making: Patient medically stable for psych admission Disposition - Clinical Impression Clinical Impression: Depression - POA Present On Arrival: None - Disposition Disposition: Routine/Home Disposition Time: 01:17 Condition: STABLE
[2017-07-31] MEDS ORDERED: DiphenhydrAMINE 50 mg/ml Inj IM PRN (03:32)
[2017-07-31] MEDS ORDERED: Alum-Mag Hydrox-Simethicone Susp (30 mL) PO PRN (03:32)
[2017-07-31] MEDS ORDERED: Magnesium Hydroxide Susp 30 ml UD PO PRN (03:32)
--- NOTE | 2017-07-31 03:42 | PCM.BM ---
<Beck Kamara - Last Filed: 07/31/17 03:41> Treatment Plan Problems - Problems identified on initial assessmt Hopelessness/Helplessness Date Initiated: 07/31/17 Time Initiated: 03:41 Assessment reference: NA Status: Active Treatment assets and liabiliti Patient Assests: adapts well, cooperative, self-reliant, ADL independent, physically healthy, good support system, negotiates basic needs Patient Liabilities: relationship conflicts - Milieu Protocol Maintain good personal hygiene: daily Encourage regular showers, daily Remind patient to perform daily oral care, daily Assist patient to perform ADL's Maintain personal safety: every shift Educate patient to report safety concerns to staff, every shift Monitor environment for contraband/sharps Medication safety: Monitor for expected outcome, potential side effects: every shift, Assess barriers to learning: every shift, Assess readiness for medication education: every shift <Isis Cruz - Last Filed: 07/31/17 11:14> - Diagnosis (1) Alcohol-induced mood disorder with depressive symptoms Status: Acute Interventions: Medication management, Individual and group therapy, Psychoeducation 07/31/17 11:14 (2) Alcohol abuse Status: Acute Interventions: Medication management, Individual and group therapy, Psychoeducation 07/31/17 11:15 <Renetta Alba - Last Filed: 08/01/17 09:59> Family Contact Family contact: Patient agrees to contact, Family has been contacted by patient , Telephone contact initiated by staff Family contact name: Caremn - mother Family contacted how many times per week?: 2 - Goals for Treatment Patient goals for treatment: Pt to be encouraged to attend activity and clinical groups 3-5x per week to identify at least 2 contributing factors to depression and suicide attempt. Psycho-education to be provided to patient/ family regarding benefits of medications and treatment adherence. Pt to be encouraged to participate in group milieu to develop effective coping skills to reduce depression and free of suicide ideation. Coordinate discharge resource needs by providing referral for psychiatric treatment follow up in the community. Discharge/Continuing Care - Education Needs Education Needs: Family Medication, Family Diagnosis/Disease Process, Family Coping Skills, Family Community resources, Family Personal Hygiene/Grooming, Family Aftercare Safety Plan, Patient Medication, Patient Diagnosis/Disease Process, Patient Coping Skills, Patient Community resources, Patient Personal Hygiene/Grooming, Patient Aftercare Safety Plan - Discharge Discharge Criteria: Tolerates medication w/o severe side effects, Free of Suicidal thoughts, Free of agitation, Normal sleep pattern, Ability to care for self, Reduction of target symptoms Discharge to:: Home, With Family, Substance Abuse Rehab - Additional Comments 08/01/17 09:53 Pt seen in team on 07/31/2017 and case discussed. Reason for hospitalization reviewed and discussed. Pt's social and medical issues reviewed. Pt's medications reviewed. Tx plan reviewed and discussed. pt verbalized agreement to tx plan. Pt provided proposal manager writer with written and verbal consent to contact his mother, Ashley. SW to continue to follow case. - Treatment Team Participation Discussed with Family/SO: No Was Patient/Family/SO present at Treatment Team Meeting: Yes
[2017-07-31 07:47] LABS: T4 8.25 ug/dl (5.5-11.0)
--- NOTE | 2017-07-31 11:14 | PCM.PSYCH ---
Initial Psychiatric Evaluation - Initial Psychiatric Evaluation Type of Admission: Voluntary Legal Status: Capacity Chief Complaint (in patient's own words): "I want someone to hurt me." Patient's Reaction to Hospitalization: HPI: 31 year old, H/S/M, who was brought to ED via EMS secondary to pt walking into a police station stating that he wanted to . Patient reports that he does not want to harm himself because of his tenriism beliefs but would like someone to harm him so he could . He reports depressed mood, low self worth , feeling of hopelessness/helplessness and negative thoughts in the context of chronic alcohol abuse. He denies AH/VH/paranoia/delusions. He is able to contract for safety on the unit. No HI. He does report that he has issues with controlling his anger. He has given conflicting information about his level of compliance with Lexapro, but tells greeting card writer that he is compliant with the medication. +sleep/appetite disturbances. Ashley Corral; [phone] CW from ER ([facility]) spoke to pt's mother to obtain collateral information regarding pt. Pt's mother reported highly concerns about pt's mental health as she stated that pt has become very violent (e.g- pt verbally yelled at his mother and his sister) in the last couple of days and pt began to use alcohol again, even tough ; he had completed the Rehab Treatment at [facility] in [place] recently. Pt's mother reported that she believes that pt is a threat to self as pt's mother reported that pt continuously states, " I want someone to kill me; I do not want to live anymore. "Pt's mother reported that pt has past hx of self- mutilation behavior as pt attempted suicide by cutting his wrist on a fence about 1 year ago. PPHx: H/o 3 psychiatric admission, most recent to [facility] in 01/2017. Pt attended [facility] rehab program from 03/21-07/19 as per patient. He reports that he has been taking Lexapro as prescribed by his PMD. He denies current psychiatric treatment. H/o suicide attempt 1 yr ago by cutting himself on a fence. 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; drinks a 12 pack of beer/day; lives w/ mom; h/o special education classes; denies physical/sexual/emotional abuse; buddhist; completed 12th grade; denies drug/cig use Current Medications: Active Medications Generic Name Dose Route Start Last Admin Trade Name Freq PRN Reason Stop Dose Admin Acetaminophen 650 mg 07/31/17 03:32 Tylenol 325mg Tab PO Q4 PRN for pain 4-7 Al Hydrox/Mg Hydrox/Simethicone 30 ml 07/31/17 03:32 Maalox Plus 30 Ml PO Q4 PRN Dyspepsia Diphenhydramine HCl 50 mg 07/31/17 03:32 Benadryl IM Q6 PRN Extrapyramidal S/S Unable PO Diphenhydramine HCl 50 mg 07/31/17 03:32 Benadryl PO Q6 PRN Extrapyramidal Symptoms Diphenhydramine HCl 50 mg 07/31/17 03:32 Benadryl PO HS PRN Sleep Escitalopram Oxalate 20 mg 07/31/17 09:00 Lexapro PO DAILY CHIN Haloperidol 5 mg 07/31/17 03:32 Haldol PO Q4 PRN Agitation Haloperidol Lactate 5 mg 07/31/17 03:32 Haldol IM Q4 PRN Agitation, Unable to Take PO Lorazepam 2 mg 07/31/17 03:32 Ativan IM Q4 PRN Anxiety/Agitation,Unable PO Lorazepam 2 mg 07/31/17 03:32 Ativan PO Q4 PRN Anxiety/Agitation Lorazepam 1 mg 07/31/17 09:00 07/31/17 09:24 Ativan PO 1 mg TID CHIN Administration Magnesium Hydroxide 30 ml 07/31/17 03:32 Milk Of Magnesia PO HS PRN Constipation Past Psychiatric History - Past Psychiatric History Previous Treatment History: Inpatient Pertinent Medical Hx (Current Medical&Sleep Prob, Allergies): Allergies Allergy/AdvReac Type Severity Reaction Status Date / Time No Known Allergies Allergy Verified 06/05/17 13:25 ARIPiprazole [Abilify] 5 mg PO DAILY 30 Days #30 tab 02/06/17 Escitalopram [Lexapro] 20 mg PO DAILY 30 Days #30 tab 02/06/17 Gabapentin [Neurontin] 100 mg PO TID 30 Days #90 cap 02/06/17 Review of Systems - Psychiatric Psychiatric: As Per HPI, Abnormal Sleep Pattern, Anxiety, Behavioral Changes, Change in Appetite, Depression, Difficulty Concentrating, Hopelessness, Irritability, Mood Swings, Suicidal Ideation Mental Status Examination - Personal Presentation Personal Presentation: Looks stated age - Affect Affect: Constricted, Depressed - Motor Activity Motor Activity: Calm - Reliability in Providing Information Reliability in Providing Information: Fair - Speech Speech: Coherent - Mood Mood: Depressed - Formal Thought Process Formal Thought Process: Circumstantial - Hallucinations/Delusions Additional comments: NO AH/VH/paranoia/delusions - Obsessions/Compulsions Obsessions: No Compulsions: No - Cognitive Functions Orientation: Person, Place, Situation, Time Sensorium: Alert Estimate of Intelligence: Below average Judgement: Intact, as evidence by: Insight regarding need for hospitalization Memory: Recent intact, as evidence by: Ability to recall events of the day, Remote intact, as evidenced by: Abilit to recall sig. life events - Risk Risk: Suicidal, Diminished functioning - Strength & Assets Inventory Strength & Assets Inventory: Family support, Cooperative - Limitations Limitations: Other (Below average intelligence) DSM 5 DX - DSM 5 DSM 5 Diagnosis: Alcohol induced mood disorder; Alcohol Use Disorder - Recommended/Plan of Treatment Treatment Recommendations and Plan of Treatment: Alcohol induced mood disorder; Alcohol Use Disorder -Admit to psychiatry unit -Individual and group therapy -Psychoeducation -Ativan to prevent ETOH withdrawal; will taper daily -Restart Lexapro, unclear if patient has been compliant with this medication -Obtain collateral history -Medicine consult -Disposition planning Projected ELOS: 6-9 days Discharge Plan and Discharge Criteria: Discharge when patient is psychiatrically stable - Smoking Cessation Smoking Cessation Initiated: No Reason for not providing: Not indicated
--- NOTE | 2017-07-31 20:06 | CP.PCM.CON ---
History of Present Illness - History of Present Illness History of Present Illness: 31 y/o male with PMH depression on Lexapro , but not complinat with medications , ETOH abuse 12 pack/day presented to police sttaion asking for help. [place] currently admitted to psych [facility] for management of depression . Medicine consult called [facility] . As per patient he drinks every day and yesterday after drinking his last bottle started feeling anxious ,agitated , worthless , sad . He felt scared of hurting himself that is why he ran outside and walked to police station asking for help. Presently feeling depressed , not suicidal , denies any hallucinations. Denies any chest pain , SOB, palpitations, PND, orthopnea, urinary symptoms or changes in bowel movements. Has prior diagnosis of depression and prior hospitalizations in psych unit. 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 [employer] ; 14 point review of system negative except above Review of Systems - Review of Systems All systems: reviewed and no additional remarkable complaints except Past Patient History - Infectious Disease Hx of Infectious Diseases: None - Tetanus Immunizations Tetanus Immunization: Unknown - Past Medical History & Family History Past Medical History?: No - Past Social History Smoking Status: Never Smoked Chewing Tobacco Use: No Cigar Use: No Alcohol: > 2 Drinks/Day Drugs: Denies Home Situation {Lives}: With Family Domestic Violence: Negative - CARDIAC Hx Cardiac Disorders: No Hx Hypertension: No - PULMONARY Hx Tuberculosis: No - NEUROLOGICAL HX Cerebrovascular Accident: No Hx Seizures: No - HEENT Hx HEENT Problems: Yes Hx Deafness: Yes (hard of hearing on the L ear) - RENAL Hx Chronic Kidney Disease: No - ENDOCRINE/METABOLIC Hx Endocrine Disorders: No - HEMATOLOGICAL/ONCOLOGICAL Hx Cancer: No Hx Human Immunodeficiency Virus (HIV): No - INTEGUMENTARY Hx Dermatological Problems: No - MUSCULOSKELETAL/RHEUMATOLOGICAL Hx Fractures: Yes (L hip) - GASTROINTESTINAL Hx Gastrointestinal Disorders: No - GENITOURINARY/GYNECOLOGICAL Hx Sexually Transmitted Disorders: No - PSYCHIATRIC Hx Anxiety: Yes Hx Depression: Yes Hx Emotional Abuse: No Hx Physical Abuse: No Hx Substance Use: No - SURGICAL HISTORY Hx Surgeries: Yes Hx Open Reduction Internal Fixation: Yes (hip/femur fracture) - ANESTHESIA Hx Anesthesia: Yes Hx Anesthesia Reactions: No Hx Malignant Hyperthermia: No Meds Allergies/Adverse Reactions: Allergies Allergy/AdvReac Type Severity Reaction Status Date / Time No Known Allergies Allergy Verified 06/05/17 13:25 - Medications Medications: Current Medications Acetaminophen (Tylenol 325mg Tab) 650 mg PO Q4 PRN PRN Reason: for pain 4-7 Al Hydrox/Mg Hydrox/Simethicone (Maalox Plus 30 Ml) 30 ml PO Q4 PRN PRN Reason: Dyspepsia Diphenhydramine HCl (Benadryl) 50 mg IM Q6 PRN PRN Reason: Extrapyramidal S/S Unable PO Diphenhydramine HCl (Benadryl) 50 mg PO Q6 PRN PRN Reason: Extrapyramidal Symptoms Diphenhydramine HCl (Benadryl) 50 mg PO HS PRN PRN Reason: Sleep Escitalopram Oxalate (Lexapro) 20 mg PO DAILY [facility] Last Admin: 07/31/17 12:38 Dose: 20 mg Folic Acid (Folic Acid) 1 mg PO DAILY [facility] Last Admin: 07/31/17 17:47 Dose: Not Given Haloperidol (Haldol) 5 mg PO Q4 PRN PRN Reason: Agitation Haloperidol Lactate (Haldol) 5 mg IM Q4 PRN PRN Reason: Agitation, Unable to Take PO Lorazepam (Ativan) 2 mg IM Q4 PRN PRN Reason: Anxiety/Agitation,Unable PO Lorazepam (Ativan) 2 mg PO Q4 PRN PRN Reason: Anxiety/Agitation Lorazepam (Ativan) 1 mg PO TID [facility] Last Admin: 07/31/17 17:45 Dose: 1 mg Magnesium Hydroxide (Milk Of Magnesia) 30 ml PO HS PRN PRN Reason: Constipation Thiamine HCl (Vitamin B1 Tab) 100 mg PO DAILY [facility] Last Admin: 07/31/17 17:45 Dose: 100 mg Physical Exam - Constitutional Appears: Non-toxic, No Acute Distress - Head Exam Head Exam: ATRAUMATIC, NORMAL INSPECTION, NORMOCEPHALIC - Eye Exam Eye Exam: EOMI, Normal appearance, PERRL Pupil Exam: NORMAL ACCOMODATION - ENT Exam ENT Exam: Mucous Membranes Moist, Normal Exam - Neck Exam Neck exam: Positive for: Full Rom, Normal Inspection - Respiratory Exam Respiratory Exam: Clear to Auscultation Bilateral, NORMAL BREATHING PATTERN. absent: Rales, Rhonchi, Wheezes - Cardiovascular Exam Cardiovascular Exam: REGULAR RHYTHM, RRR, +S1, +S2. absent: JVD - GI/Abdominal Exam GI & Abdominal Exam: Normal Bowel Sounds, Soft. absent: Distended, Guarding, Rebound, Tenderness - Rectal Exam Rectal Exam: Deferred - Extremities Exam Extremities exam: Positive for: normal capillary refill, normal inspection, pedal pulses present. Negative for: pedal edema - Back Exam Back exam: NORMAL INSPECTION - Neurological Exam Neurological exam: Alert, CN II-XII Intact - Psychiatric Exam Psychiatric exam: Anxious, Flat Affect Additional comments: slow reaction time no gross neuro deficits - Skin Skin Exam: Dry, Intact, Normal Color, Warm Results - Vital Signs Recent Vital Signs: Last Vital Signs Temp 97.9 F 07/31/17 15:39 Pulse 90 07/31/17 15:39 Resp 19 07/31/17 15:39 BP 136/82 07/31/17 15:39 Pulse Ox 97 07/31/17 03:18 - Labs Result Diagrams: 07/30/17 20:03 07/30/17 20:03 Labs: Laboratory Results - last 24 hr 07/30/17 07/30/17 07/30/17 20:03 20:03 20:03 WBC 8.3 RBC 5.20 Hgb 15.3 Hct 45.7 MCV 87.7 MCH 29.5 MCHC 33.6 RDW 13.9 Plt Count 263 MPV 9.8 Neut % (Auto) 59.1 Lymph % (Auto) 28.9 Graves % (Auto) 6.5 Eos % (Auto) 4.8 H Baso % (Auto) 0.7 Neut # (Auto) 4.9 Lymph # (Auto) 2.4 Graves # (Auto) 0.5 Eos # (Auto) 0.4 Baso # (Auto) 0.1 Sodium 147 Potassium 3.6 Chloride 103 Carbon Dioxide 19 L Anion Gap 29 H BUN 19 Creatinine 1.1 Est GFR ( Amer) > 60 Est GFR (Non-Af Amer) > 60 Random Glucose 99 Hemoglobin A1c Calcium 9.5 Total Bilirubin 0.6 AST 26 ALT 38 Alkaline Phosphatase 75 Total Protein 8.2 Albumin 4.7 Globulin 3.5 Albumin/Globulin Ratio 1.3 Triglycerides Cholesterol LDL Cholesterol Direct HDL Cholesterol Thyroxine (T4) TSH 3rd Generation Urine Color Urine Clarity Urine pH Ur Specific [place] Urine Protein Urine Glucose (UA) Urine Ketones Urine Blood Urine Nitrate Urine Bilirubin Urine Urobilinogen Ur Leukocyte Esterase Urine RBC (Auto) Urine Microscopic WBC Urine Opiates Screen Negative Urine Methadone Screen Negative Ur Barbiturates Screen Negative Ur Phencyclidine Scrn Negative Ur Amphetamines Screen Negative U Benzodiazepines Scrn Negative U Oth Cocaine Metabols Negative U Cannabinoids Screen Negative Alcohol, Quantitative 232 H RPR 07/30/17 07/31/17 07/31/17 20:03 07:00 07:00 WBC RBC Hgb Hct MCV MCH MCHC RDW Plt Count MPV Neut % (Auto) Lymph % (Auto) Graves % (Auto) Eos % (Auto) Baso % (Auto) Neut # (Auto) Lymph # (Auto) Graves # (Auto) Eos # (Auto) Baso # (Auto) Sodium Potassium Chloride Carbon Dioxide Anion Gap BUN Creatinine Est GFR ( Amer) Est GFR (Non-Af Amer) Random Glucose Hemoglobin A1c 5.4 Calcium Total Bilirubin AST ALT Alkaline Phosphatase Total Protein Albumin Globulin Albumin/Globulin Ratio Triglycerides 78 D Cholesterol 183 LDL Cholesterol Direct 83 HDL Cholesterol 71 H Thyroxine (T4) 8.25 TSH 3rd Generation 0.92 Urine Color Light yellow Urine Clarity Clear Urine pH 7.0 Ur Specific [place] < 1.005 Urine Protein Negative Urine Glucose (UA) Neg Urine Ketones Negative Urine Blood Small Urine Nitrate Negative Urine Bilirubin Negative Urine Urobilinogen 0.2-1.0 Ur Leukocyte Esterase Neg Urine RBC (Auto) 5 H Urine Microscopic WBC < 1 Urine Opiates Screen Urine Methadone Screen Ur Barbiturates Screen Ur Phencyclidine Scrn Ur Amphetamines Screen U Benzodiazepines Scrn U Oth Cocaine Metabols U Cannabinoids Screen Alcohol, Quantitative RPR 07/31/17 07:00 WBC RBC Hgb Hct MCV MCH MCHC RDW Plt Count MPV Neut % (Auto) Lymph % (Auto) Graves % (Auto) Eos % (Auto) Baso % (Auto) Neut # (Auto) Lymph # (Auto) Graves # (Auto) Eos # (Auto) Baso # (Auto) Sodium Potassium Chloride Carbon Dioxide Anion Gap BUN Creatinine Est GFR ( Amer) Est GFR (Non-Af Amer) Random Glucose Hemoglobin A1c Calcium Total Bilirubin AST ALT Alkaline Phosphatase Total Protein Albumin Globulin Albumin/Globulin Ratio Triglycerides Cholesterol LDL Cholesterol Direct HDL Cholesterol Thyroxine (T4) TSH 3rd Generation Urine Color Urine Clarity Urine pH Ur Specific [place] Urine Protein Urine Glucose (UA) Urine Ketones Urine Blood Urine Nitrate Urine Bilirubin Urine Urobilinogen Ur Leukocyte Esterase Urine RBC (Auto) Urine Microscopic WBC Urine Opiates Screen Urine Methadone Screen Ur Barbiturates Screen Ur Phencyclidine Scrn Ur Amphetamines Screen U Benzodiazepines Scrn U Oth Cocaine Metabols U Cannabinoids Screen Alcohol, Quantitative RPR Nonreactive Assessment & Plan - Assessment and Plan (Free Text) Assessment: 31 y/o male with PMH depression on Lexapro , but not complinat with medications , ETOH abuse 12 pack/day presented to police sttaion asking for help. [place] currently admitted to psych [facility] for management of depression . Medicine consult called [facility] . As per patient he drinks every day and yesterday after drinking his last bottle started feeling anxious ,agitated , worthless , sad . He felt scared of hurting himself that is why he ran outside and walked to police station asking for help. Presently feeling depressed , not suicidal , denies any hallucinations. Denies any chest pain , SOB, palpitations, PND, orthopnea, urinary symptoms or changes in bowel movements. Has prior diagnosis of depression and prior hospitalizations in psych unit. 1. Depression management as per psycch 2. ETOH abuse ETOH levels 232 on admission Ativan PRN seziure / withdrawal precautions Thiamine Folic acid supplements
--- NOTE | 2017-08-01 10:06 | PCM.PYCHPN ---
Psychiatric Progress Note - Psychiatric Progress Note Patient seen today, length of contact: Patient evaluated, case discussed with team, chart reviewed Patient Chief Complaint: "I'm depressed." Problems Identified/Issues Discussed: Patient reports that he continues to feel depressed. He continues to have low self worth and negative thoughts. He denies acute ideation to harm himself or others. He denies acute ETOH withdrawal symptoms; we discussed starting to taper the Ativan and continued daily tapering. No AH/VH/paranoia/delusions. No adverse effects to medications reported. Medication Change: Yes (Taper Ativan) Medical Record Reviewed: Yes Consults ordered or reviewed: Medicine consult Mental Status Examination - Cognitive Function Orientation: Person, Place, Situation, Time Memory: Intact Attention: WNL Concentration: WNL Association: WNL Fund of Knowledge: [facility] Decription of patient's judgement and insights: Fair I/J - Mood Mood: Depressed - Affect Affect: Constricted, Depressed - Speech Speech: Appropriate - Formal Thought Process Formal Thought Process: Circumstantial Psychotic Thoughts and Behaviors: Denies AH/VH/paranoia/delusions - Suicidal Ideation Suicidal Ideation: No - Homicidal Ideation Homicidal Ideation: No Goal/Treatment Plan - Goal/Treatment Plan Need for Continued Stay: Remain at risks for inpatient hospitalization, Severe depression anxiety, Discharge may exacerbated symptoms Progress Toward Problem(s) and Goals/Treatment Plan: Alcohol induced mood disorder vs Major Depressive Disorder; Alcohol Use Disorder -Individual and group therapy -Psychoeducation -Ativan to prevent ETOH withdrawal; will taper daily -Continue Lexapro 20 mg PO Daily -Obtain collateral history -Medicine consult -Disposition planning Estimated Date of D/C: 08/07/17
--- NOTE | 2017-08-02 08:54 | PCM.PYCHPN ---
Psychiatric Progress Note - Psychiatric Progress Note Patient seen today, length of contact: Patient evaluated, case discussed with team, chart reviewed Patient Chief Complaint: "I'm depressed." Problems Identified/Issues Discussed: Patient reports that he continues to feel depressed, due to negative thoughts, feeling concerned about conflicts he had with his family and feeling concerned that he won't have a job when he is discharged and his lack of romantic relationships. He denies acute ideation to harm himself or others. He denies acute ETOH withdrawal symptoms; we discussed starting to taper the Ativan and continued daily tapering. No AH/VH/paranoia/delusions. No adverse effects to medications reported. Medication Change: Yes (Taper Ativan) Medical Record Reviewed: Yes Consults ordered or reviewed: Medicine consult Mental Status Examination - Cognitive Function Orientation: Person, Place, Situation, Time Memory: Intact Attention: WNL Concentration: WNL Association: WNL Fund of Knowledge: [facility] Decription of patient's judgement and insights: Fair I/J - Mood Mood: Depressed - Affect Affect: Constricted, Depressed - Speech Speech: Appropriate - Formal Thought Process Formal Thought Process: Circumstantial Psychotic Thoughts and Behaviors: Denies AH/VH/paranoia/delusions - Suicidal Ideation Suicidal Ideation: No - Homicidal Ideation Homicidal Ideation: No Goal/Treatment Plan - Goal/Treatment Plan Need for Continued Stay: Remain at risks for inpatient hospitalization, Severe depression anxiety, Discharge may exacerbated symptoms Progress Toward Problem(s) and Goals/Treatment Plan: Alcohol induced mood disorder vs Major Depressive Disorder; Alcohol Use Disorder -Individual and group therapy -Psychoeducation -Ativan to prevent ETOH withdrawal; will taper daily -Continue Lexapro 20 mg PO Daily -Obtain collateral history -Medicine consult -Disposition planning Estimated Date of D/C: 08/07/17
--- NOTE | 2017-08-03 09:43 | PCM.PYCHPN ---
Psychiatric Progress Note - Psychiatric Progress Note Patient seen today, length of contact: Patient evaluated, case discussed with team, chart reviewed Patient Chief Complaint: pt is still sad and withdrawn .no withdrwals from Alcohol Medication Change: Yes (Taper Ativan) Medical Record Reviewed: Yes Mental Status Examination - Cognitive Function Orientation: Person, Place, Situation, Time Memory: Intact Attention: WNL Concentration: WNL Association: WNL Fund of Knowledge: WNL - Mood Mood: Depressed - Affect Affect: Constricted, Depressed - Speech Speech: Appropriate - Formal Thought Process Formal Thought Process: Circumstantial - Suicidal Ideation Suicidal Ideation: No - Homicidal Ideation Homicidal Ideation: No Goal/Treatment Plan - Goal/Treatment Plan Need for Continued Stay: Remain at risks for inpatient hospitalization, Severe depression anxiety, Discharge may exacerbated symptoms Progress Toward Problem(s) and Goals/Treatment Plan: will taper down ativan to 0.25 mg bid . d/c plans as per dr ritter Estimated Date of D/C: 08/07/17
--- NOTE | 2017-08-04 15:09 | PCM.PYCHPN ---
Psychiatric Progress Note - Psychiatric Progress Note Patient seen today, length of contact: Patient evaluated, case discussed with team, chart reviewed Patient Chief Complaint: pt is still sad and withdrawn and still worried about his drinking and worried that his family will not accept him.pt denies any alcohol withdrawls . Medication Change: Yes (Taper Ativan) Medical Record Reviewed: Yes Mental Status Examination - Cognitive Function Orientation: Person, Place, Situation, Time Memory: Intact Attention: WNL Concentration: WNL Association: WNL Fund of Knowledge: WNL - Mood Mood: Depressed - Affect Affect: Constricted, Depressed - Speech Speech: Appropriate - Formal Thought Process Formal Thought Process: Circumstantial - Suicidal Ideation Suicidal Ideation: No - Homicidal Ideation Homicidal Ideation: No Goal/Treatment Plan - Goal/Treatment Plan Need for Continued Stay: Remain at risks for inpatient hospitalization, Severe depression anxiety, Discharge may exacerbated symptoms Progress Toward Problem(s) and Goals/Treatment Plan: will taper down ativan to 0.25 mg bid . d/c plans as per dr ritter Estimated Date of D/C: 08/07/17
--- NOTE | 2017-08-05 10:52 | PCM.PYCHPN ---
Psychiatric Progress Note - Psychiatric Progress Note Patient seen today, length of contact: Patient evaluated, case discussed with team, chart reviewed Patient Chief Complaint: "I'm depressed." Problems Identified/Issues Discussed: Patient denies current signs/symptoms of ETOH withdrawal. We discussed stopping that Ativan today. He reports that his mood is starting to improve, but he continues to have constricted/depressed affect. He is more goal oriented. He states that he is not interested in alcohol rehab at this time. Psychoeducation provided on the dangers of ETOH abuse and the importance of compliance with treatment and medications. No AH/VH/paranoia/delusions. No adverse effects to medications reported. Medication Change: Yes (Stop Ativan) Medical Record Reviewed: Yes Consults ordered or reviewed: Medicine consult Mental Status Examination - Cognitive Function Orientation: Person, Place, Situation, Time Memory: Intact Attention: WNL Concentration: WNL Association: WNL Fund of Knowledge: [facility] Decription of patient's judgement and insights: Improving I/J - Mood Mood: Depressed - Affect Affect: Constricted, Depressed - Speech Speech: Appropriate - Formal Thought Process Formal Thought Process: No Impairment Psychotic Thoughts and Behaviors: No AH/VH/paranoia/delusions - Suicidal Ideation Suicidal Ideation: No - Homicidal Ideation Homicidal Ideation: No Goal/Treatment Plan - Goal/Treatment Plan Need for Continued Stay: Remain at risks for inpatient hospitalization, Severe depression anxiety, Discharge may exacerbated symptoms Progress Toward Problem(s) and Goals/Treatment Plan: 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
--- NOTE | 2017-08-06 08:55 | PCM.PYCHPN ---
Psychiatric Progress Note - Psychiatric Progress Note Patient seen today, length of contact: Patient evaluated, case discussed with team, chart reviewed Patient Chief Complaint: "I'm okay." Problems Identified/Issues Discussed: Patient reports that his mood is improving. He is more goal oriented. He continues to refuse alcohol rehab at this time. Psychoeducation provided on the dangers of ETOH abuse and the importance of compliance with treatment and medications. No AH/VH/paranoia/delusions. No adverse effects to medications reported. Medication Change: No Medical Record Reviewed: Yes Consults ordered or reviewed: Medicine consult Mental Status Examination - Cognitive Function Orientation: Person, Place, Situation, Time Memory: Intact Attention: WNL Concentration: WNL Association: WNL Fund of Knowledge: [facility] Decription of patient's judgement and insights: Improving I/J - Mood Mood: Depressed - Affect Affect: Constricted - Speech Speech: Appropriate - Formal Thought Process Formal Thought Process: No Impairment Psychotic Thoughts and Behaviors: No AH/VH/paranoia/delusions - Suicidal Ideation Suicidal Ideation: No - Homicidal Ideation Homicidal Ideation: No Goal/Treatment Plan - Goal/Treatment Plan Need for Continued Stay: Severe depression anxiety, Discharge may exacerbated symptoms Progress Toward Problem(s) and Goals/Treatment Plan: 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
--- NOTE | 2017-08-07 10:48 | PCM.PYCHPN ---
Psychiatric Progress Note - Psychiatric Progress Note Patient seen today, length of contact: Patient evaluated, case discussed with team, chart reviewed Patient Chief Complaint: "I'm okay." Problems Identified/Issues Discussed: Patient reports that his mood continues to improve. He is now interested in inpatient alcohol rehab. No AH/VH/paranoia/delusions. No adverse effects to medications reported. Medication Change: No Medical Record Reviewed: Yes Consults ordered or reviewed: Medicine consult Mental Status Examination - Cognitive Function Orientation: Person, Place, Situation, Time Memory: Intact Attention: WNL Concentration: WNL Association: WNL Fund of Knowledge: [facility] Decription of patient's judgement and insights: Improving I/J - Mood Mood: Neutral - Affect Affect: Constricted - Speech Speech: Appropriate - Formal Thought Process Formal Thought Process: No Impairment Psychotic Thoughts and Behaviors: No AH/VH/paranoia/delusions - Suicidal Ideation Suicidal Ideation: No - Homicidal Ideation Homicidal Ideation: No Goal/Treatment Plan - Goal/Treatment Plan Progress Toward Problem(s) and Goals/Treatment Plan: 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 -Individual and group therapy -Psychoeducation -Continue Lexapro 20 mg PO Daily -Medicine consult -Disposition planning- refer to inpatient alcohol rehabilitation Estimated Date of D/C: 08/09/17
--- NOTE | 2017-08-07 12:03 | PCM.BM ---
Treatment Plan Problems - Problems identified on initial assessmt Hopelessness/Helplessness Date Initiated: 07/31/17 Time Initiated: 03:41 Assessment reference: NA Status: Active Treatment assets and liabiliti Patient Assests: adapts well, cooperative, self-reliant, ADL independent, physically healthy, good support system, negotiates basic needs Patient Liabilities: relationship conflicts - Milieu Protocol Maintain good personal hygiene: daily Encourage regular showers, daily Remind patient to perform daily oral care, daily Assist patient to perform ADL's Maintain personal safety: every shift Educate patient to report safety concerns to staff, every shift Monitor environment for contraband/sharps Medication safety: Monitor for expected outcome, potential side effects: every shift, Assess barriers to learning: every shift, Assess readiness for medication education: every shift Milieu Narrative: 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 -Individual and group therapy -Psychoeducation -Continue Lexapro 20 mg PO Daily -Medicine consult -Disposition planning- refer to inpatient alcohol rehabilitation Family Contact Family contact: Patient agrees to contact, Family has been contacted by patient , Telephone contact initiated by staff Family contact name: Caremn - mother Family contacted how many times per week?: 2 - Goals for Treatment Patient goals for treatment: Pt to be encouraged to attend activity and clinical groups 3-5x per week to identify at least 2 contributing factors to depression and suicide attempt. Psycho-education to be provided to patient/ family regarding benefits of medications and treatment adherence. Pt to be encouraged to participate in group milieu to develop effective coping skills to reduce depression and free of suicide ideation. Coordinate discharge resource needs by providing referral for psychiatric treatment follow up in the community. Discharge/Continuing Care - Education Needs Education Needs: Family Medication, Family Diagnosis/Disease Process, Family Coping Skills, Family Community resources, Family Personal Hygiene/Grooming, Family Aftercare Safety Plan, Patient Medication, Patient Diagnosis/Disease Process, Patient Coping Skills, Patient Community resources, Patient Personal Hygiene/Grooming, Patient Aftercare Safety Plan - Discharge Discharge Criteria: Tolerates medication w/o severe side effects, Free of Suicidal thoughts, Free of agitation, Normal sleep pattern, Ability to care for self, Reduction of target symptoms Discharge to:: Home, With Family, Substance Abuse Rehab - Additional Comments 08/01/17 09:53 Pt seen in team on 07/31/2017 and case discussed. Reason for hospitalization reviewed and discussed. Pt's social and medical issues reviewed. Pt's medications reviewed. Tx plan reviewed and discussed. pt verbalized agreement to tx plan. Pt provided quality analyst/technical writer with written and verbal consent to contact his mother, Ashley. SW to continue to follow case. 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 -Individual and group therapy -Psychoeducation -Continue Lexapro 20 mg PO Daily -Medicine consult -Disposition planning- refer to inpatient alcohol rehabilitation Discussed with Family/SO: No Was Patient/Family/SO present at Treatment Team Meeting: Yes Treatment Plan Review Patient participation: Yes Family/SO/Caregiver participation: No Additional Comments: Pt seen and discussed in team meeting. Pt's progress and bx on unit reviewed. Pt reported "I don't feel right" while pointing to his head. Pt advised to further elaborate his feelings. Pt reported "i need think clearly. I have a lot on my mind. I have these thought." Pt reported that he continues to think that no-one loves him; that eh is a waste of time in the world; and that he needs to change his ways to better himself. Pt further reported that he feels like if he is discharged that he will replace and use alcohol again. Pt requested to be transferred to [facility]. Branch Sales And Service Representative inquired about reason for transfer and pt stated "I need more days, i can't be discharged. I'm not right." Further more pt reported that after 'homework assignment" about "What are 10 things you want to change in your life and why?" that he realized he needs to go to inpatient rehab. Pt reported he is now agreeable to rehab. Branch Sales And Service Representative inquired if him not being able to return home with mom has anything to do with being agreeable to rehab when on pt was opposed to it. Pt stated "No. I just changed my mind." Pt verbalized agreement to [facility] and/or [facility] if bed available. Pt's scheduled discharge for today, August 07 adjourned and pt will be referred to inpatient rehab. SW to continue to follow case. - Problem Hopelessness/Helplessness Date Initiated: 07/31/17 Time Initiated: 03:41 Progress toward outcomes: unchanged - Discharge / Continuing Care Discharge to:: Substance Abuse Rehab Behavioral Health Services: Outpatient therapy, Other (Medication management) Health Needs: Follow up care/test, Doctor appointments, Medications/Rx, Educational, Recreational/Social, Alcohol/Drug treatment
--- NOTE | 2017-08-08 08:12 | PCM.PYCHPN ---
Psychiatric Progress Note - Psychiatric Progress Note Patient seen today, length of contact: Patient evaluated, case discussed with team, chart reviewed Patient Chief Complaint: "I'm okay." Problems Identified/Issues Discussed: Denies acute depression/anxiety. He continues to be interested in inpatient alcohol rehab. No AH/VH/paranoia/delusions. No adverse effects to medications reported. Medication Change: No Medical Record Reviewed: Yes Consults ordered or reviewed: Medicine consult Mental Status Examination - Cognitive Function Orientation: Person, Place, Situation, Time Memory: Intact Attention: WNL Concentration: WNL Association: WNL Fund of Knowledge: [facility] Decription of patient's judgement and insights: Improving I/J - Mood Mood: Neutral - Affect Affect: Broad - Speech Speech: Appropriate - Formal Thought Process Formal Thought Process: No Impairment Psychotic Thoughts and Behaviors: No AH/VH/paranoia/delusions - Suicidal Ideation Suicidal Ideation: No - Homicidal Ideation Homicidal Ideation: No Goal/Treatment Plan - Goal/Treatment Plan Progress Toward Problem(s) and Goals/Treatment Plan: 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 -Individual and group therapy -Psychoeducation -Continue Lexapro 20 mg PO Daily -Medicine consult -Disposition planning- refer to inpatient alcohol rehabilitation Estimated Date of D/C: 08/09/17
--- NOTE | 2017-08-09 08:06 | PCM.PYCHPN ---
Psychiatric Progress Note - Psychiatric Progress Note Patient seen today, length of contact: Patient evaluated, case discussed with team, chart reviewed Patient Chief Complaint: "I'm okay." Problems Identified/Issues Discussed: No significant events overnight. Denies acute depression/anxiety. He continues to be interested in inpatient alcohol rehab. No AH/VH/paranoia/delusions. No adverse effects to medications reported. Medication Change: No Medical Record Reviewed: Yes Consults ordered or reviewed: Medicine consult Mental Status Examination - Cognitive Function Orientation: Person, Place, Situation, Time Memory: Intact Attention: WNL Concentration: WNL Association: WN Fund of Knowledge: [facility] Decription of patient's judgement and insights: Improving I/J - Mood Mood: Neutral - Affect Affect: Broad - Speech Speech: Appropriate - Formal Thought Process Formal Thought Process: No Impairment Psychotic Thoughts and Behaviors: No AH/VH/paranoia/delusions - Suicidal Ideation Suicidal Ideation: No - Homicidal Ideation Homicidal Ideation: No Goal/Treatment Plan - Goal/Treatment Plan Progress Toward Problem(s) and Goals/Treatment Plan: Alcohol induced mood disorder; Alcohol Use Disorder; patient is psychiatrically stable for referral to inpatient alcohol rehabilitation. -Individual and group therapy -Psychoeducation -Continue Lexapro 20 mg PO Daily -Medicine consult -Disposition planning- refer to inpatient alcohol rehabilitation Estimated Date of D/C: 08/12/17
--- NOTE | 2017-08-10 12:29 | PCM.PYCHPN ---
Psychiatric Progress Note - Psychiatric Progress Note Patient seen today, length of contact: Patient evaluated, case discussed with team, chart reviewed Patient Chief Complaint: I have trouble sleeping Problems Identified/Issues Discussed: pt seen in bed, reported decreased sleep with early insomnia , depressed mood and affect, denied any current suicidal or homicidal ideation DSM 5 Symptoms Update: alcohol induced mood disorder with depressive features Medication Change: Yes (start trazodone) Medical Record Reviewed: Yes Mental Status Examination - Cognitive Function Orientation: Person, Place, Situation, Time Memory: Intact Attention: WNL Concentration: WNL Association: WNL Fund of Knowledge: WNL - Mood Mood: Depressed - Affect Affect: Constricted - Speech Speech: Appropriate, Soft - Formal Thought Process Formal Thought Process: No Impairment - Suicidal Ideation Suicidal Ideation: No - Homicidal Ideation Homicidal Ideation: No Goal/Treatment Plan - Goal/Treatment Plan Need for Continued Stay: Severe depression anxiety, Discharge may exacerbated symptoms Progress Toward Problem(s) and Goals/Treatment Plan: continue with lexapro start trazodone 100mg qhs for insomnia referral to inpatient reab Estimated Date of D/C: 08/12/17
--- NOTE | 2017-08-11 14:11 | PCM.PYCHPN ---
Psychiatric Progress Note - Psychiatric Progress Note Patient seen today, length of contact: Patient evaluated, case discussed with team, chart reviewed Patient Chief Complaint: I slept better with trazodone Problems Identified/Issues Discussed: pt seen in bed, reported better sleep , continues to present with depressed mood and affect, denied any current suicidal or homicidal ideation DSM 5 Symptoms Update: major depression alcohol use disorder Medication Change: No Medical Record Reviewed: Yes Mental Status Examination - Cognitive Function Orientation: Person, Place, Situation, Time Memory: Intact Attention: WNL Concentration: WNL Association: WNL Fund of Knowledge: WNL - Mood Mood: Depressed - Affect Affect: Constricted - Speech Speech: Appropriate, Soft - Formal Thought Process Formal Thought Process: No Impairment - Suicidal Ideation Suicidal Ideation: No - Homicidal Ideation Homicidal Ideation: No Goal/Treatment Plan - Goal/Treatment Plan Need for Continued Stay: Severe depression anxiety, Discharge may exacerbated symptoms Progress Toward Problem(s) and Goals/Treatment Plan: continue with lexapro trazodone 100mg qhs for insomnia referral to inpatient reahab Estimated Date of D/C: 08/12/17
[2017-08-12] MEDS ORDERED: Alum-Mag Hydrox-Simethicone Susp (30 mL) PO PRN (09:19)
[2017-08-12] MEDS ORDERED: Magnesium Hydroxide Susp 30 ml UD PO PRN (09:19)
--- NOTE | 2017-08-12 09:22 | PCM.PYCHPN ---
Psychiatric Progress Note - Psychiatric Progress Note Patient seen today, length of contact: Patient evaluated, case discussed with team, chart reviewed Patient Chief Complaint: "I'm okay." Problems Identified/Issues Discussed: No significant events over the weekend. Denies acute depression/anxiety. He continues to be interested in inpatient alcohol rehab. No AH/VH/paranoia/ delusions. No adverse effects to medications reported. Medication Change: No Medical Record Reviewed: Yes Consults ordered or reviewed: Medicine consult Mental Status Examination - Cognitive Function Orientation: Person, Place, Situation, Time Memory: Intact Attention: WNL Concentration: WNL Association: WN Fund of Knowledge: [facility] Decription of patient's judgement and insights: Improving I/J - Mood Mood: Neutral - Affect Affect: Constricted - Speech Speech: Appropriate - Formal Thought Process Formal Thought Process: No Impairment Psychotic Thoughts and Behaviors: No AH/VH/paranoia/delusions - Suicidal Ideation Suicidal Ideation: No - Homicidal Ideation Homicidal Ideation: No Goal/Treatment Plan - Goal/Treatment Plan Progress Toward Problem(s) and Goals/Treatment Plan: Alcohol induced mood disorder; Alcohol Use Disorder; patient is psychiatrically stable for referral to inpatient alcohol rehabilitation. -Individual and group therapy -Psychoeducation -Continue Lexapro 20 mg PO Daily -Continue Trazodone 100 mg PO HS -Medicine consult -Disposition planning- refer to inpatient alcohol rehabilitation Estimated Date of D/C: 08/13/17
[2017-08-12 21:19] VITALS: RESP 18
[2017-08-13 05:46] VITALS: O2SAT 18
--- NOTE | 2017-08-13 08:56 | PCM.PYCHPN ---
Psychiatric Progress Note - Psychiatric Progress Note Patient seen today, length of contact: Patient evaluated, case discussed with team, chart reviewed Patient Chief Complaint: "I'm okay." Problems Identified/Issues Discussed: No new events. Denies acute depression/anxiety. He continues to be interested in inpatient alcohol rehab. No AH/VH/paranoia/delusions. No adverse effects to medications reported. Medication Change: No Medical Record Reviewed: Yes Consults ordered or reviewed: Medicine consult Mental Status Examination - Cognitive Function Orientation: Person, Place, Situation, Time Memory: Intact Attention: WNL Concentration: WNL Association: WNL Fund of Knowledge: [facility] Decription of patient's judgement and insights: Improving I/J - Mood Mood: Neutral - Affect Affect: Constricted - Speech Speech: Appropriate - Formal Thought Process Formal Thought Process: No Impairment Psychotic Thoughts and Behaviors: No AH/VH/paranoia/delusions - Suicidal Ideation Suicidal Ideation: No - Homicidal Ideation Homicidal Ideation: No Goal/Treatment Plan - Goal/Treatment Plan Need for Continued Stay: Discharge may exacerbated symptoms Progress Toward Problem(s) and Goals/Treatment Plan: Alcohol induced mood disorder; Alcohol Use Disorder; patient is psychiatrically stable for referral to inpatient alcohol rehabilitation. -Individual and group therapy -Psychoeducation -Continue Lexapro 20 mg PO Daily -Continue Trazodone 100 mg PO HS -Medicine consult -Disposition planning- refer to inpatient alcohol rehabilitation Estimated Date of D/C: 08/14/17
[2017-08-14 06:07] VITALS: BP 102/69; PULSE 74; TEMP 98.1
--- NOTE | 2017-08-14 08:27 | PCM.PYCHDC ---
Mental Status Examination - Mental Status Examination Orientation: Person, Place, Situation, Time Memory: Intact Mood: Neutral Affect: Broad Speech: Appropriate Attention: WNL Concentration: WNL Association: WNL Fund of Knowledge: WNL Formal Thought Process: No Impairment Description of patient's judgement and insight: Fair I/J Psychotic Thoughts and Behaviors: No AH/VH/paranoia/delusions Suicidal Ideation: No Current Homicidal Ideation?: No Discharge Summary - Discharge Note Reason for Hospitalization: HPI: 31 year old, H/S/M, who was brought to ED via EMS secondary to pt walking into a police station stating that he wanted to . Patient reports that he does not want to harm himself because of his confucianism beliefs but would like someone to harm him so he could . He reports depressed mood, low self worth , feeling of hopelessness/helplessness and negative thoughts in the context of chronic alcohol abuse. He denies AH/VH/paranoia/delusions. He is able to contract for safety on the unit. No HI. He does report that he has issues with controlling his anger. He has given conflicting information about his level of compliance with Lexapro, but tells typewriter operator automatic that he is compliant with the medication. +sleep/appetite disturbances. Ashley Corral; [phone] CW from ER ([facility]) spoke to pt's mother to obtain collateral information regarding pt. Pt's mother reported highly concerns about pt's mental health as she stated that pt has become very violent (e.g- pt verbally yelled at his mother and his sister) in the last couple of days and pt began to use alcohol again, even tough ; he had completed the [facility] [place] recently. Pt's mother reported that she believes that pt is a threat to self as pt's mother reported that pt continuously states, " I want someone to kill me; I do not want to live anymore. "Pt's mother reported that pt has past hx of self- mutilation behavior as pt attempted suicide by cutting his wrist on a fence about 1 year ago. PPHx: H/o 3 psychiatric admission, most recent to [facility] in 01/2017. Pt attended [facility] rehab program from 03/21-07/19 as per patient. He reports that he has been taking Lexapro as prescribed by his PMD. He denies current psychiatric treatment. H/o suicide attempt 1 yr ago by cutting himself on a fence. 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 Reason for request. 2. Findings. 3. Follow-up Consultations: Medicine consult Summary of Hospital Course include:: 1. Description of specific treatment plan utilized for patients during their course of treatmen. 2. Summarize the time- course for resolution of acute symptoms and/or regressed behaviors. 3. Describe issues identified and worked on during hospitalization. 4. Describe medication utilized. 5. Describe medical problems identified and treated. 6. Reassessment of suicide risk Summary of Hospital Course: Patient was admitted to the psychiatry unit. Individual and group therapy were provided. Psychoeducation provided on the dangers of ETOH abuse and patient was treated w/ Ativan to prevent ETOH withdrawal, which was tapered gradually and stopped. No current depression/anxiety/AH/VH/SI/HI. Patient was stabilized on Lexapro and Trazodone. He is psychiatrically stable for discharge at this time and will be attending alcohol rehab immediately following discharge. - Diagnosis (1) Alcohol-induced mood disorder with depressive symptoms Current Visit: No Status: Chronic (2) Alcohol abuse Current Visit: No Status: Chronic - Final Diagnosis (DSM 5) Condition upon Discharge: STABLE DSM 5: Alcohol induced mood disorder; Alcohol Use Disorder Disposition: REHAB FACILITY/REHAB UNIT Follow-up Treatment Plan: Alcohol induced mood disorder; Alcohol Use Disorder; patient is psychiatrically stable for discharge to inpatient alcohol rehabilitation. -Individual and group therapy -Psychoeducation -Continue Lexapro 20 mg PO Daily -Continue Trazodone 100 mg PO HS -Medicine consult Prescriptions/Medication Reconciliation: Escitalopram [Lexapro] 20 mg PO DAILY 30 Days #30 tab traZODone [Desyrel] 100 mg PO HS #30 tab - Smoking Cessation Smoking Cessation Medication prescribed: No Reason for not providing: Not indicated - Antipsychotic Medications Pt discharged on 2 or more routine antipsychotic medications: No
== END 2017-08-14 07:50 | DRG 751 ==
LOC: H.ER 17:31 → H.ERHOLD 07-31 00:53 → H.STEP 07-31 03:31
PROVIDERS: ADMIT Psychiatry & Neurology Psychiatry; ATTEND Psychiatry & Neurology Psychiatry
PROC: HZ52ZZZ Individual Psychotherapy for Substance Abuse Treatment, Cognitive-Behavioral (ICD-10-PCS; principal; 2017-07-31)
PROC: GZHZZZZ Group Psychotherapy (ICD-10-PCS; 2017-07-31)
PROC: GZ58ZZZ Individual Psychotherapy, Cognitive-Behavioral (ICD-10-PCS; 2017-07-31)
DX: F10.14 Alcohol abuse with alcohol-induced mood disorder (principal); F10.129 Alcohol abuse with intoxication, unspecified; Y90.7 Blood alcohol level of 200-239 mg/100 ml; F32.9 Major depressive disorder, single episode, unspecified; Z91.14 Patient's other noncompliance with medication regimen; F41.9 Anxiety disorder, unspecified; G47.00 Insomnia, unspecified; Z91.5 Personal history of self-harm; H91.8X2 Other specified hearing loss, left ear; Z79.899 Other long term (current) drug therapy

== ENCOUNTER 2018-03-09 01:16 | Inpatient (IN) | payer MEDICAID, OTHER ==
[2018-03-09 01:16] VITALS: BMI 22.6
--- NOTE | 2018-03-09 01:57 | ED PDOC ---
HPI: Psych/Substance Abuse Time Seen by Provider: 03/09/18 01:20 Chief Complaint (Nursing): Psychiatric Evaluation Chief Complaint (Provider): Psychiatric Evaluation History Per: Patient History/Exam Limitations: no limitations Onset/Duration Of Symptoms: Hrs (1) Current Symptoms Are (Timing): Still Present Modifying Factor(s): Alcohol Associated Symptoms: Depression. denies: Suicidal Plan Additional Complaint(s): 32 year old male with a history of depression and alcohol depression presents to the ED for psychiatric evaluation. Patients family called 911 because of patient's behavior and he is non-compliant with his medication, Lexapro 20mg. Patient admits he drank a few beer today and expressed he is suicidal in triage. Otherwise, he denies suicidal plan, fever, cough, shortness of breath, abdominal pain or homicidal ideation. PMD: No family provider Past Medical History Reviewed: Historical Data, Nursing Documentation, Vital Signs Vital Signs: Last Vital Signs Temp 97.5 F L 03/09/18 01:24 Pulse 101 H 03/09/18 01:24 Resp 16 03/09/18 01:24 BP 124/90 03/09/18 01:24 Pulse Ox 98 03/09/18 01:24 - Medical History PMH: Anxiety, Depression, Fractures Denies: Diabetes, Hepatitis, HIV, HTN, Chronic Kidney Disease, Seizures, Sexually Transmitted Disease - Family History Family History: States: Unknown Family Hx - Social History Alcohol: > 2 Drinks/Day - Immunization History Hx Tetanus Toxoid Vaccination: No - Home Medications Home Medications: Ambulatory Orders Medication Instructions Recorded RX: Escitalopram [Lexapro] 20 mg PO DAILY 30 Days #30 tab 08/06/17 - Allergies Allergies/Adverse Reactions: Allergies Allergy/AdvReac Type Severity Reaction Status Date / Time No Known Allergies Allergy Verified 03/09/18 01:24 Review of Systems ROS Statement: Except As Marked, All Systems Reviewed And Found Negative Constitutional: Negative for: Fever Cardiovascular: Negative for: Chest Pain Respiratory: Negative for: Cough, Shortness of Breath Gastrointestinal: Negative for: Abdominal Pain Psych: Positive for: Depression, Suicidal ideation. Negative for: Other (homicidal ideation) Physical Exam - Reviewed Nursing Documentation Reviewed: Yes Vital Signs Reviewed: Yes - Physical Exam Appears: Positive for: Non-toxic, No Acute Distress Head Exam: Positive for: ATRAUMATIC, NORMAL INSPECTION, NORMOCEPHALIC Skin: Positive for: Normal Color, Warm, Dry. Negative for: Rash Eye Exam: Positive for: EOMI, Normal appearance, PERRL ENT: Positive for: Normal ENT Inspection Neck: Positive for: Normal, Painless ROM, Supple. Negative for: Decreased ROM Cardiovascular/Chest: Positive for: Regular Rate, Rhythm. Negative for: Murmur Respiratory: Positive for: Normal Breath Sounds. Negative for: Decreased Breath Sounds, Wheezing, Respiratory Distress Gastrointestinal/Abdominal: Positive for: Normal Exam, Soft. Negative for: Tenderness, Guarding, Rebound Back: Positive for: Normal Inspection Extremity: Positive for: Normal ROM. Negative for: Tenderness, Pedal Edema, Deformity Neurologic/Psych: Positive for: Alert, Oriented (drunk). Negative for: Motor/Sensory Deficits - Laboratory Results Result Diagrams: 03/09/18 03:20 03/09/18 03:20 - ECG O2 Sat by Pulse Oximetry: 98 (RA) Pulse Ox Interpretation: Normal Medical Decision Making Medical Decision Making: Time: 133 Initial Impression: psychiatric evaluation Initial Plan: EKG Acetaminophen Alcohol serum Basic Metabolic Panel Drug screen Salicylate CBC w/ Differential Lorazepam 2mg Haldol 5mg 1:1 Observation Restraint: violent or harm to self/others as ordered -- pt became agitated when arrived in the ER (unsafe to self and otherS) and needed medications to relieve agitation Urinalysis Reevaluation Gordy: [address] Jimenez pending sobriety and reevaluation. Scribe Attestation: Documented by Graham Mckeon, acting as a scribe for Carlos Torres MD Provider Scribe Attestation: All medical record entries made by the Scribe were at my direction and personally dictated by me. I have reviewed the chart and agree that the record accurately reflects my personal performance of the history, physical exam, medi morris decision making, and the department course for this patient. I have also personally directed, reviewed, and agree with the discharge instructions and disposition. Disposition - Clinical Impression Clinical Impression: Alcohol-induced mood disorder with depressive symptoms - Patient ED Disposition Is Patient to be Admitted: Transfer of Care - Disposition Disposition: Transfer of Care Disposition Time: 07:00 Condition: FAIR Patient Signed Over To: Yamil Jimenez Handoff Comments: pending sobriety and reevaluation
[2018-03-09 03:35] LABS: BASO # 0.1 K/uL (0.0-0.2); BASO % 0.8 % (0.0-2.0); EOS # 0.3 K/uL (0.0-0.7); EOS % 4.6 % (0.0-4.0); HEMOGLOBIN 14.7 g/dL (12.0-18.0); LYMPH # 1.6 K/uL (1.0-4.3); MEAN CELL VOLUME 89.7 fl (80.0-94.0); MEAN CORPUSCULAR HEMOGLOBIN 29.5 pg (27.0-31.0); MEAN CORPUSCULAR HGB CONC 32.9 g/dL (33.0-37.0); MEAN PLATELET VOLUME 8.3 fl (7.2-11.7); MONO # 0.4 K/uL (0.0-0.8); NEUT # 4.1 K/uL (1.8-7.0); NEUT % 63.6 % (50.0-75.0); NRBC % 0.4 % (0.0-0.0); RBC 4.97 Mil/uL (4.40-5.90); RED CELL DISTRIBUTION WIDTH 13.1 % (11.5-14.5); WHITE BLOOD COUNT 6.4 K/uL (4.8-10.8)
[2018-03-09 03:38] LABS: BLOOD UREA NITROGEN 13 mg/dl (9-20); CALCIUM 9.2 mg/dL (8.4-10.2); GFR NON-AFRICAN AMERICAN > 60
[2018-03-09 03:39] LABS: ACETAMINOPHEN < 10.0 ug/ml (10.0-30.0); SALICYLATE < 1.0 mg/dl
--- NOTE | 2018-03-09 07:17 | ED PDOC ---
- Laboratory Results Result Diagrams: 03/09/18 03:20 03/09/18 03:20 - ECG O2 Sat by Pulse Oximetry: 96 (RA) Pulse Ox Interpretation: Normal Medical Decision Making Medical Decision Making: Time: 0700 -- Patient endorsed to me by Dr. Torres, pending sobriety, re-evaluation and final ER disposition. Reeval. Awake and alert. Denies suicidal ideation Scribe Attestation: Documented by Arvind Underwood, acting as a scribe for Yamil Jimenez MD. Provider Scribe Attestation: All medical record entries made by the Scribe were at my direction and personally dictated by me. I have reviewed the chart and agree that the record accurately reflects my personal performance of the history, physical exam, medical decision making, and the department course for this patient. I have also personally directed, reviewed, and agree with the discharge instructions and disposition. Disposition - Clinical Impression Clinical Impression: Alcohol-induced mood disorder with depressive symptoms - POA Present On Arrival: None - Disposition Referrals: [facility] [Outside] Disposition: Routine/Home Disposition Time: 09:11 Condition: FAIR Instructions: Depression, Alcohol Use - When Is Drinking a Problem? Forms: [employer] (Greek)
--- NOTE | 2018-03-09 10:38 | RAD ---
Date of service: 03/09/2018 HISTORY: cough COMPARISON: No prior. FINDINGS: LUNGS: No active pulmonary disease. PLEURA: No significant pleural effusion identified, no pneumothorax apparent. CARDIOVASCULAR: No aortic atherosclerotic calcification present. Normal cardiac size. No pulmonary vascular congestion. OSSEOUS STRUCTURES: No significant abnormalities. VISUALIZED UPPER ABDOMEN: Normal. OTHER FINDINGS: Severely limited by over penetration IMPRESSION: No active disease. Severely limited by over penetration
[2018-03-09 11:21] LABS: SQUAMOUS EPITHIAL < 1 /hpf (0-5); URINE BACTERIA RARE (<OCC); URINE BILIRUBIN NEGATIVE (NEGATIVE); URINE BLOOD SMALL (NEGATIVE); URINE CLARITY CLEAR (Clear); URINE COLOR YELLOW (YELLOW); URINE GLUCOSE (UA) NEG (NEGATIVE); URINE LEUKOCYTE ESTERASE NEG Leu/uL (Negative); URINE PROTEIN NEGATIVE (NEGATIVE); URINE UROBILINOGEN 0.2-1.0 mg/dL (0.2-1.0)
[2018-03-09 11:39] VITALS: O2SAT 98
[2018-03-09 11:51] LABS: BARBITURATES, UR NEGATIVE (NEGATIVE); BENZODIAZEPINES, UR NEGATIVE (NEGATIVE); OPIATES, UR NEGATIVE (NEGATIVE); PHENCYCLIDINE, UR NEGATIVE (NEGATIVE)
[2018-03-09] MEDS ORDERED: DiphenhydrAMINE 50 mg/ml Inj IM PRN (12:13)
[2018-03-09] MEDS ORDERED: Magnesium Hydroxide Susp 30 ml UD PO PRN (12:13)
[2018-03-09] MEDS ORDERED: Alum-Mag Hydrox-Simethicone Susp (30 mL) PO PRN (12:13)
--- NOTE | 2018-03-09 13:18 | PCM.BM ---
<Gloria Saleem E - Last Filed: 03/09/18 13:15> Treatment Plan Problems - Problems identified on initial assessmt Problem 1 Date Initiated: 03/09/18 Time Initiated: 13:17 Assessment reference: HP, NA Status: Active Priority: 1 Hopelessness/Helplessness Date Initiated: 03/09/18 Time Initiated: 13:17 Assessment reference: HP, NA Status: Active Medication Nonadherence Date Initiated: 03/09/18 Time Initiated: 13:19 Assessment reference: HP, NA Status: Active Treatment assets and liabiliti Patient Assests: cooperative, educated, self-reliant, ADL independent, physically healthy, good support system, negotiates basic needs Patient Liabilities: financial problems, relationship conflicts, substance abuse - Milieu Protocol Maintain good personal hygiene: daily Encourage regular showers, daily Remind patient to perform daily oral care, daily Assist patient to perform ADL's Conduct patient checks and document Observation sheet: Q15 minutes Maintain personal safety: every shift Educate patient to report safety concerns to staff, every shift Monitor environment for contraband/sharps Medication safety: Monitor for expected outcome, potential side effects: every shift, Assess barriers to learning: every shift, Assess readiness for medication education: every shift <Isis Cruz - Last Filed: 03/10/18 10:46> - Diagnosis (1) Alcohol-induced mood disorder with depressive symptoms Status: Chronic Interventions: Medication management, Individual and group therapy, Psychoeducation 03/10/18 10:46 (2) Alcohol abuse Status: Chronic Interventions: Medication management, Individual and group therapy, Psychoeducation 03/10/18 10:46 <Renetta Alba M - Last Filed: 03/10/18 14:26> Treatment Plan Problems - Problems identified on initial assessmt Knowledge Deficit - Alcohol Use Time Initiated: 12:46 Assessment reference: SW Status: Active Priority: 1 Family Contact Family involvement: Family/SO is involved Family contact: Patient agrees to contact, Family has been contacted by patient, Telephone contact initiated by staff Family contact name: Ashley - mother Family contacted how many times per week?: 2 - Outside Agency [facility] Care involvment: Information-sharing Agency contact name: Eric - clinician Agency contact number: - Goals for Treatment Patient goals for treatment: Pt will improve overal mood. Pt will be free of terri cidal thoughts. Pt will develop strategies for thought distraction when ruminating on the past. Pt will be compliant with medication management. Pt will take medications prescribed on a daily basis. Pt will report any medication concerns tot he dctor JENNIFER. Pt will be free of alcohol abuse. Pt will avoid people, places, and situations where temptation might be overwhelming. Pt will learn five triggers for alcohol use. Discharge/Continuing Care - Education Needs Education Needs: Family Medication, Family Diagnosis/Disease Process, Family Coping Skills, Family Anger Management skills, Family Placement options, Family Community resources, Family Activities of Daily Living, Family Nutrition, Family Health Practices/Safety, Family Personal Hygiene/Grooming, Family Aftercare Safety Plan, Patient Medication, Patient Diagnosis/Disease Process, Patient Coping Skills, Patient Anger Management skills, Patient Placement options, [facility] Community resources, Patient Activities of Daily Living, Patient Nutrition, Patient Health Practices/Safety, Patient Personal Hygiene/Grooming, Patient Aftercare Safety Plan - Discharge Discharge Criteria: Tolerates medication w/o severe side effects, Free of Suicidal thoughts, Free of agitation, Normal sleep pattern, Ability to care for self, Reduction of target symptoms, Other (Free of Alcohol Use) Discharge to:: Substance Abuse Rehab - Additional Comments 03/10/18 12:47 Pt seen and discussed in team meeting. Reason for admission reviewed and discussed. Pt reported that he relapsed on alcohol and has been using since February 2018 to present time. Pt reported that he has been consuming on a daily basis. Pt reported that he relapsed after believing that he was romantically involved with another pt at [employer]; however, his feelings were not corresponded. Pt reported that since then he has been drinking daily. Pt reported that he has been non-compliant with Lexapro 20mg since summer 2017. Pt also reported that he has been non-compliant with [facility] since beginning of February 2018. Pt reported that he was intoxicated prior to ED arrival. Pt reported that his mother called the EMS because he became aggressive at home and "said some hurtful things" to his mother. Pt also reported that he expressed suicide ideation without a plan. Pt reported that alcohol use is a primary concern for him and the trigger to his depression. During team meeting, pt denied active SI and HI. Pt denied AVH. Pt denied any paranoia. Pt's medical and social issues reviewed and discussed. Pt's medications reviewed and discussed. Pt agreed to start Lexapro 10mg daily. Tx plan reviewed and discussed. Pt si also on the alcohol protocol and was started on Ativan .5mg TID. Pt signed consent for screenplay writer to call his mother and [facility] [email or web address] for additional collateral information. SW to continue to follow case. - Treatment Team Participation Discussed with Family/SO: No Was Patient/Family/SO present at Treatment Team Meeting: Yes
--- NOTE | 2018-03-09 15:35 | CP.PCM.CON ---
History of Present Illness - History of Present Illness History of Present Illness: 32 yo male with history of depression admitted to psyche unit because of suicidal ideation. Review of Systems - Review of Systems All systems: reviewed and no additional remarkable complaints except (aside from those mentioned above, 12 point system review were negative by me) Past Patient History - Infectious Disease Hx of Infectious Diseases: None - Tetanus Immunizations Tetanus Immunization: Unknown - Past Medical History & Family History Past Medical History?: No - Past Social History Smoking Status: Never Smoked Chewing Tobacco Use: No Cigar Use: No Alcohol: > 2 Drinks/Day - CARDIAC Hx Cardiac Disorders: No Hx Hypertension: No - PULMONARY Hx Respiratory Disorders: No Hx Tuberculosis: No - NEUROLOGICAL HX Cerebrovascular Accident: No Hx Seizures: No - HEENT Hx HEENT Problems: Yes Hx Deafness: Yes (hard of hearing on the L ear) - RENAL Hx Chronic Kidney Disease: No - ENDOCRINE/METABOLIC Hx Endocrine Disorders: No - HEMATOLOGICAL/ONCOLOGICAL Hx Blood Disorders: No Hx Cancer: No Hx Human Immunodeficiency Virus (HIV): No - INTEGUMENTARY Hx Dermatological Problems: No - MUSCULOSKELETAL/RHEUMATOLOGICAL Hx Fractures: Yes (left femoral head/hip 2016) Hx Unsteady Gait: No - GASTROINTESTINAL Hx Gastrointestinal Disorders: No - GENITOURINARY/GYNECOLOGICAL Hx Genitourinary Disorders: No Hx Sexually Transmitted Disorders: No - PSYCHIATRIC Hx Anxiety: Yes Hx Depression: Yes Hx Substance Use: No - SURGICAL HISTORY Hx Surgeries: Yes Hx Open Reduction Internal Fixation: Yes (hip/femur fracture) - ANESTHESIA Hx Anesthesia: Yes Hx Anesthesia Reactions: No Hx Malignant Hyperthermia: No Has any member of the family had a problem w/ anesthesia?: No Meds Allergies/Adverse Reactions: Allergies Allergy/AdvReac Type Severity Reaction Status Date / Time No Known Allergies Allergy Verified 03/09/18 01:24 - Medications Medications: Current Medications Acetaminophen (Tylenol 325mg Tab) 650 mg PO Q4 PRN PRN Reason: Pain, moderate (4-7) Al Hydrox/Mg Hydrox/Simethicone (Maalox Plus 30 Ml) 30 ml PO Q4 PRN PRN Reason: Dyspepsia Diphenhydramine HCl (Benadryl) 50 mg IM Q6 PRN PRN Reason: Extrapyramidal S/S Unable PO Diphenhydramine HCl (Benadryl) 50 mg PO Q6 PRN PRN Reason: eps Escitalopram Oxalate (Lexapro) 20 mg PO DAILY CHIN Haloperidol (Haldol) 5 mg PO Q4 PRN PRN Reason: Agitation Haloperidol Lactate (Haldol) 5 mg IM Q4 PRN PRN Reason: Agitation, Unable to Take PO Lorazepam (Ativan) 2 mg IM Q4 PRN PRN Reason: Anxiety/Agitation,Unable PO Lorazepam (Ativan) 2 mg PO Q4 PRN PRN Reason: Agitation Magnesium Hydroxide (Milk Of Magnesia) 30 ml PO HS PRN PRN Reason: Constipation Physical Exam - Constitutional Appears: No Acute Distress - Head Exam Head Exam: ATRAUMATIC - Eye Exam Eye Exam: absent: Scleral icterus - ENT Exam ENT Exam: Mucous Membranes Moist - Neck Exam Neck exam: Negative for: Meningismus - Respiratory Exam Respiratory Exam: absent: Rales, Rhonchi, Wheezes, Respiratory Distress - Cardiovascular Exam Cardiovascular Exam: REGULAR RHYTHM, +S1, +S2 - GI/Abdominal Exam GI & Abdominal Exam: Soft. absent: Tenderness - Rectal Exam Rectal Exam: Deferred - Extremities Exam Extremities exam: Negative for: pedal edema - Back Exam Back exam: NORMAL INSPECTION - Neurological Exam Neurological exam: Alert, Oriented x3 - Psychiatric Exam Psychiatric exam: Normal Affect - Skin Skin Exam: Dry, Intact Results - Vital Signs Recent Vital Signs: Last Vital Signs Temp 99.0 F 03/09/18 11:50 Pulse 98 H 03/09/18 11:50 Resp 20 03/09/18 12:11 BP 126/79 03/09/18 11:50 Pulse Ox 98 03/09/18 11:50 - Labs Result Diagrams: 03/09/18 03:20 03/09/18 03:20 Labs: Laboratory Results - last 24 hr 03/09/18 03/09/18 03/09/18 03:20 03:20 03:20 WBC 6.4 RBC 4.97 Hgb 14.7 Hct 44.6 MCV 89.7 D MCH 29.5 MCHC 32.9 L RDW 13.1 Plt Count 287 MPV 8.3 Neut % (Auto) 63.6 Lymph % (Auto) 25.0 [place] % (Auto) 6.0 Eos % (Auto) 4.6 H Baso % (Auto) 0.8 Neut # (Auto) 4.1 Lymph # (Auto) 1.6 [place] # (Auto) 0.4 Eos # (Auto) 0.3 Baso # (Auto) 0.1 Sodium 144 Potassium 4.3 Chloride 109 H Carbon Dioxide 20 L Anion Gap 19 BUN 13 Creatinine 0.8 Est GFR ( Amer) > 60 Est GFR (Non-Af Amer) > 60 Random Glucose 102 Calcium 9.2 Urine Color Urine Clarity Urine pH Ur Specific [place] Urine Protein Urine Glucose (UA) Urine Ketones Urine Blood Urine Nitrate Urine Bilirubin Urine Urobilinogen Ur Leukocyte Esterase Urine RBC (Auto) Urine Microscopic WBC Ur Squamous Epith Cells Urine Bacteria Salicylates < 1.0 Urine Opiates Screen Urine Methadone Screen Acetaminophen < 10.0 L Ur Barbiturates Screen Ur Phencyclidine Scrn Ur Amphetamines Screen U Benzodiazepines Scrn U Oth Cocaine Metabols U Cannabinoids Screen Alcohol, Quantitative 205 H 03/09/18 03/09/18 10:00 10:00 WBC RBC Hgb Hct MCV MCH MCHC RDW Plt Count MPV Neut % (Auto) Lymph % (Auto) [place] % (Auto) Eos % (Auto) Baso % (Auto) Neut # (Auto) Lymph # (Auto) [place] # (Auto) Eos # (Auto) Baso # (Auto) Sodium Potassium Chloride Carbon Dioxide Anion Gap BUN Creatinine Est GFR ( Amer) Est GFR (Non-Af Amer) Random Glucose Calcium Urine Color Yellow Urine Clarity Clear Urine pH 5.0 Ur Specific [place] 1.014 Urine Protein Negative Urine Glucose (UA) Neg Urine Ketones Negative Urine Blood Small Urine Nitrate Negative Urine Bilirubin Negative Urine Urobilinogen 0.2-1.0 Ur Leukocyte Esterase Neg Urine RBC (Auto) 2 Urine Microscopic WBC 2 Ur Squamous Epith Cells < 1 Urine Bacteria Rare Salicylates Urine Opiates Screen Negative Urine Methadone Screen Negative Acetaminophen Ur Barbiturates Screen Negative Ur Phencyclidine Scrn Negative Ur Amphetamines Screen Negative U Benzodiazepines Scrn Negative U Oth Cocaine Metabols Negative U Cannabinoids Screen Negative Alcohol, Quantitative Assessment & Plan (1) Suicidal ideation Status: Acute Comment: psyche is managing
--- NOTE | 2018-03-09 20:08 | CARD ---
APPROVED REPORT Date of service: 03/09/2018 EKG Measurement Heart [id number] <Conclusion> Normal sinus rhythm Normal ECG
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
--- NOTE | 2018-03-10 10:45 | PCM.PYCHPN ---
Psychiatric Progress Note - Psychiatric Progress Note Patient seen today, length of contact: Pt evaluated, case discussed w/ team, chart reviewed Patient Chief Complaint: Depression Problems Identified/Issues Discussed: Patient reports that he continues to feel depressed w/ sleep and appetite disturbances. He states that he has been drinking 7 (24 oz) beers daily for over a month. He reports that he did make suicidal statement prior to coming to the hospital, but denies current SI and is able to contract for safety. He denies current signs/symptoms of ETOH withdrawal. Psychoeducation provided on the dangers of ETOH abuse. NO AH/VH/paranoia/delusions/SI/HI. Medication Change: Yes (Ativan to prevent ETOH withdrawal) Medical Record Reviewed: Yes Consults ordered or reviewed: Medicine consult Mental Status Examination - Cognitive Function Orientation: Person, Place, Situation, Time Memory: Intact Association: WNL Fund of Knowledge: [facility] Decription of patient's judgement and insights: Poor I/J - Mood Mood: Depressed, Anxious - Affect Affect: Constricted, Depressed - Speech Speech: Soft - Formal Thought Process Formal Thought Process: No Impairment Psychotic Thoughts and Behaviors: Denies AH/VH/paranoia/delusions - Suicidal Ideation Suicidal Ideation: No - Homicidal Ideation Homicidal Ideation: No Goal/Treatment Plan - Goal/Treatment Plan Need for Continued Stay: Remain at risks for inpatient hospitalization, Severe depression anxiety, Discharge may exacerbated symptoms Progress Toward Problem(s) and Goals/Treatment Plan: Alcohol Induced Mood Disorder vs Major Depressive Disorder; Alcohol Use Disorder, Severe -Lexapro 10 mg PO Daily -Ativan to prevent ETOH withdrawal -Thiamine, Folate, MVI -Individual and group therapy -Psychoeducation -Medicine consult -Disposition planning Estimated Date of D/C: 03/14/18
[2018-03-10] MEDS: Multivitamin With Minerals Tab PO SCH (12:59)
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
[2018-03-11] MEDS: Multivitamin With Minerals Tab PO SCH (09:27)
[2018-03-12] MEDS: Multivitamin With Minerals Tab PO SCH (08:57)
--- NOTE | 2018-03-12 09:24 | PCM.PYCHPN ---
Psychiatric Progress Note - Psychiatric Progress Note Patient seen today, length of contact: Pt evaluated, case discussed w/ team, chart reviewed Patient Chief Complaint: Depression Problems Identified/Issues Discussed: Patient reports that his mood is improving. His sleep is improving, but he continues to have poor appetite. NO AH/VH/SI/HI. He is more hopeful for the future and is interested rehab for alcohol use disorder. He denies current signs/symptoms of ETOH withdrawal. Psychoeducation provided on the dangers of ETOH abuse. Medication Change: No (Stop Ativan) Medical Record Reviewed: Yes Consults ordered or reviewed: Medicine consult Mental Status Examination - Cognitive Function Orientation: Person, Place, Situation, Time Memory: Intact Association: WNL Fund of Knowledge: [facility] Decription of patient's judgement and insights: Poor I/J - Mood Mood: Depressed - Affect Affect: Constricted - Speech Speech: Soft - Formal Thought Process Formal Thought Process: No Impairment Psychotic Thoughts and Behaviors: Denies AH/VH/paranoia/delusions - Suicidal Ideation Suicidal Ideation: No - Homicidal Ideation Homicidal Ideation: No Goal/Treatment Plan - Goal/Treatment Plan Need for Continued Stay: Remain at risks for inpatient hospitalization, Severe depression anxiety, Discharge may exacerbated symptoms Progress Toward Problem(s) and Goals/Treatment Plan: Alcohol Induced Mood Disorder vs Major Depressive Disorder; Alcohol Use Disorder, Severe -Continue Lexapro 10 mg PO Daily -Stop Ativan -Thiamine, Folate, MVI -Individual and group therapy -Psychoeducation -Medicine consult -Disposition planning Estimated Date of D/C: 03/14/18
--- NOTE | 2018-03-13 08:27 | PCM.PYCHPN ---
Psychiatric Progress Note - Psychiatric Progress Note Patient seen today, length of contact: Pt evaluated, case discussed w/ team, chart reviewed Patient Chief Complaint: Depression Problems Identified/Issues Discussed: Patient reports that his mood continues to improve. He is more hopeful and goal directed. He is interested in alcohol rehabilitation. NO AH/VH/SI/HI. Psychoeducation provided on the dangers of ETOH abuse. Medication Change: No Medical Record Reviewed: Yes Consults ordered or reviewed: Medicine consult Mental Status Examination - Cognitive Function Orientation: Person, Place, Situation, Time Memory: Intact Association: WNL Fund of Knowledge: [facility] Decription of patient's judgement and insights: Improving I/J - Mood Mood: Neutral - Affect Affect: Broad - Speech Speech: Appropriate - Formal Thought Process Formal Thought Process: No Impairment Psychotic Thoughts and Behaviors: Denies AH/VH/paranoia/delusions - Suicidal Ideation Suicidal Ideation: No - Homicidal Ideation Homicidal Ideation: No Goal/Treatment Plan - Goal/Treatment Plan Progress Toward Problem(s) and Goals/Treatment Plan: 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 -Continue Lexapro 10 mg PO Daily -Thiamine, Folate, MVI -Individual and group therapy -Psychoeducation -Medicine consult -Disposition planning- Refer to substance abuse treatment Estimated Date of D/C: 03/14/18
[2018-03-13] MEDS: Multivitamin With Minerals Tab PO SCH (09:00)
[2018-03-14 06:24] VITALS: BP 115/76; PULSE 67; RESP 20; TEMP 97.7
--- NOTE | 2018-03-14 08:06 | PCM.PYCHDC ---
Mental Status Examination - Mental Status Examination Orientation: Person, Place, Situation, Time Memory: Intact Mood: Neutral Attention: WNL Concentration: WNL Association: WNL Fund of Knowledge: WNL Formal Thought Process: No Impairment Description of patient's judgement and insight: Fair I/J Psychotic Thoughts and Behaviors: Denies AH/VH/paranoia/delusions Suicidal Ideation: No Current Homicidal Ideation?: No Discharge Summary - Discharge Note Reason for Hospitalization: As per initial HPI note: The pt. presents to this ER as a 32 year old male who was referred to this ER by his mother for aggressive behavior and SI. At the time of the assessment the pt. was calm, minimally cooperative and behaviorally controlled. The pt.s body movement and posture were unremarkable. The pt.s speech was normal. The pt.s mood was somewhat depressed and his affect was congruent to his mood. The pt. was apathetic and reluctant to complete the assessment but was able to answer the most pertinent evaluation questions. The pt. 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 The pt. denied a current plan. The pt. reported that he some times thinks about taking his life. The pt. also denied previous SA. The pt.s hygiene and grooming were within normal limits. The pt.s thought process was WNL, although the pt. was a poor historian and declined discussing the events which led to the pt. being referred to crisis. The pt. reported that his current life stressors include his current relationship status, i.e., single. The pt. denied A/V/T hallucinations. Consultations:: List each consultation separately and include: 1. Reason for request. 2. Findings. 3. Follow-up Consultations: Medicine consult Summary of Hospital Course include:: 1. Description of specific treatment plan utilized for patients during their course of treatmen. 2. Summarize the time- course for resolution of acute symptoms and/or regressed behaviors. 3. Describe issues identified and worked on during hospitalization. 4. Describe medication utilized. 5. Describe medical problems identified and treated. 6. Reassessment of suicide risk Summary of Hospital Course: Patient was admitted to the hospital. Individual and group therapy were provided. Patient was restarted on Lexapro and treated w/ Ativan to prevent alcohol withdrawal. He denies acute depression/anxiety/AH/VH/paranoia/delusions/SI/HI/alcohol withdrawal symptoms and is now psychiatrically stable for discharge. - Diagnosis (1) Alcohol-induced mood disorder with depressive symptoms Current Visit: Yes Status: Chronic (2) Alcohol abuse Current Visit: No Status: Chronic - Final Diagnosis (DSM 5) Condition upon Discharge: GOOD DSM 5: Alcohol Induced Mood Disorder; Alcohol Use Disorder, Severe Disposition: REHAB FACILITY/REHAB UNIT Follow-up Treatment Plan: Alcohol Induced Mood Disorder vs Major Depressive Disorder; Alcohol Use Disorder, Severe; Patient has improved clinically and is psychiatrically stable for discharge to [facility]. -Continue Lexapro 10 mg PO Daily -Thiamine, Folate, MVI -Psychoeducation provided on the dangers of alcohol abuse Prescriptions/Medication Reconciliation: Escitalopram [Lexapro] 10 mg PO DAILY #30 tab - Smoking Cessation Smoking Cessation Medication prescribed: No Reason for not providing: Not indicated - Antipsychotic Medications Pt discharged on 2 or more routine antipsychotic medications: No
[2018-03-14] MEDS: Multivitamin With Minerals Tab PO SCH (08:16)
== END 2018-03-14 09:20 | DRG 751 ==
LOC: H.ER 01:16 → H.ERHOLD 09:40 → H.STEP 12:02
PROVIDERS: ADMIT Psychiatry & Neurology Psychiatry; ATTEND Psychiatry & Neurology Psychiatry
PROC: HZ52ZZZ Individual Psychotherapy for Substance Abuse Treatment, Cognitive-Behavioral (ICD-10-PCS; principal; 2018-03-09)
PROC: GZHZZZZ Group Psychotherapy (ICD-10-PCS; 2018-03-09)
PROC: GZ58ZZZ Individual Psychotherapy, Cognitive-Behavioral (ICD-10-PCS; 2018-03-09)
DX: F10.24 Alcohol dependence with alcohol-induced mood disorder (principal); F32.9 Major depressive disorder, single episode, unspecified; R45.851 Suicidal ideations; Y90.7 Blood alcohol level of 200-239 mg/100 ml; Z91.19 Patient's noncompliance with other medical treatment and regimen; F41.9 Anxiety disorder, unspecified; Z79.899 Other long term (current) drug therapy

== ENCOUNTER 2018-04-27 17:29 | Emergency (ER) | payer OTHER ==
[2018-04-27 17:29] VITALS: BMI 22.6
[2018-04-27 18:44] LABS: BASO # 0.1 K/uL (0.0-0.2); BASO % 0.5 % (0.0-2.0); EOS # 0.1 K/uL (0.0-0.7); EOS % 0.7 % (0.0-4.0); HEMOGLOBIN 16.1 g/dL (12.0-18.0); LYMPH # 1.5 K/uL (1.0-4.3); LYMPH % 11.6 % (20.0-40.0); MEAN CELL VOLUME 87.2 fl (80.0-94.0); MEAN CORPUSCULAR HEMOGLOBIN 29.1 pg (27.0-31.0); MEAN CORPUSCULAR HGB CONC 33.4 g/dL (33.0-37.0); MEAN PLATELET VOLUME 9.4 fl (7.2-11.7); MONO # 1.1 K/uL (0.0-0.8); MONO % 8.5 % (0.0-10.0); NEUT # 10.3 K/uL (1.8-7.0); NEUT % 78.7 % (50.0-75.0); NRBC % 0.4 % (0.0-0.0); RBC 5.53 Mil/uL (4.40-5.90); RED CELL DISTRIBUTION WIDTH 13.5 % (11.5-14.5)
[2018-04-27 18:54] LABS: ALB/GLOB RATIO 1.3 (1.0-2.1); ALBUMIN 4.9 g/dL (3.5-5.0); ALT/SGPT 42 U/L (21-72); AST/SGOT 31 U/L (17-59); BLOOD UREA NITROGEN 17 mg/dl (9-20); CALCIUM 10.1 mg/dL (8.4-10.2); GFR NON-AFRICAN AMERICAN > 60
--- NOTE | 2018-04-27 19:04 | ED PDOC ---
HPI: Trauma/Fall - HPI Time Seen by Provider: 04/27/18 17:50 Chief Complaint (Nursing): Trauma Chief Complaint (Provider): rib pain History Per: Patient Additional Complaint(s): 32 y/o M with hx of anxiety and depression who presents with Right sided rib/abdominal pain after fall yesterday. Pt admits to being intoxicated last night with subsequent syncopal episode with trauma to Right ribs/flank. He also sustained trauma to nose and forehead. Pt states had cecilia hematuria today and right sided chest/abdominal pain. He has not taken any medication for the pain. Denies GOMEZ, dizziness, palpitations, SOB, N/V. Past Medical History Reviewed: Historical Data, Nursing Documentation, Vital Signs Vital Signs: Last Vital Signs Temp 99.7 F H 04/27/18 17:33 Pulse 112 H 04/27/18 17:33 Resp 20 04/27/18 17:33 BP 137/85 04/27/18 17:33 Pulse Ox 96 04/27/18 17:33 - Medical History PMH: Anxiety, Depression, Fractures Denies: Diabetes, Hepatitis, HIV, HTN, Chronic Kidney Disease, Seizures, Sexually Transmitted Disease - Family History Family History: States: Unknown Family Hx - Immunization History Hx Tetanus Toxoid Vaccination: No - Home Medications Home Medications: Ambulatory Orders Medication Instructions Recorded Escitalopram [Lexapro] 10 mg PO DAILY #30 tab 03/13/18 Folic Acid 1 mg PO DAILY tab 03/13/18 Multimineral/Multivitamin 1 tab PO DAILY tab 03/13/18 [Therapeutic-M Tab] Thiamine [Vitamin B1 Tab] 100 mg PO DAILY tab 03/13/18 - Allergies Allergies/Adverse Reactions: Allergies Allergy/AdvReac Type Severity Reaction Status Date / Time No Known Allergies Allergy Verified 04/27/18 17:33 Review of Systems Cardiovascular: Positive for: Chest Pain. Negative for: Palpitations Respiratory: Negative for: Cough, Shortness of Breath Gastrointestinal: Negative for: Nausea, Vomiting Neurological: Negative for: Change in Speech, Confusion, Headache, Dizziness Physical Exam - Reviewed Nursing Documentation Reviewed: Yes Vital Signs Reviewed: Yes - Physical Exam Appears: Positive for: Non-toxic Head Exam: Negative for: ATRAUMATIC (abrasion on bridge of nose and left forehead with mild ecchymosis at both sites. ) Eye Exam: Positive for: EOMI, PERRL ENT: Positive for: Normal ENT Inspection Cardiovascular/Chest: Negative for: Chest Non Tender (+ pain on palpation of Right lower rib cage), Murmur, Tachycardia Respiratory: Positive for: Normal Breath Sounds Gastrointestinal/Abdominal: Positive for: Tenderness (RUQ tenderness on palpation. No suprapubic tenderness) Back: Positive for: Normal Inspection. Negative for: L CVA Tenderness, R CVA Tenderness Neurologic/Psych: Positive for: Alert, scout leaser II-XII (able to puff cheeks, symmetrical smile, no facial droop or tongue deviation), Oriented - Laboratory Results Result Diagrams: 04/27/18 18:39 04/27/18 18:39 Lab Results: Total Bilirubin 0.5 mg/dl (0.2-1.3) 04/27/18 18:39 AST 31 U/L (17-59) 04/27/18 18:39 ALT 42 U/L (21-72) 04/27/18 18:39 Alkaline Phosphatase 96 U/L (38-126) 04/27/18 18:39 Total Protein 8.5 G/DL (6.3-8.2) H 04/27/18 18:39 Albumin 4.9 g/dL (3.5-5.0) 04/27/18 18:39 Globulin 3.6 gm/dL (2.2-3.9) 04/27/18 18:39 Albumin/Globulin Ratio 1.3 (1.0-2.1) 04/27/18 18:39 - ECG O2 Sat by Pulse Oximetry: 96 Medical Decision Making Medical Decision Making: CBC, CMP Urine dip maxillofacial CT Head CT w/o contrast Abd/pelvis CT w/o contrast to r/o bleed Ibuprofen 600mg PO x 1 Labs: WBCs 15k, otherwise wnl. 20:00: Patient endorsed to HÉCTOR Gaston pending maxillofacial, abdominal and head CT results as well as urine dip. Disposition - Clinical Impression Clinical Impression: Rib pain on right side, Hematuria - Patient ED Disposition Is Patient to be Admitted: Transfer of Care (HÉCTOR Gaston) - Disposition Disposition: Transfer of Care Disposition Time: 20:00 Condition: FAIR Forms: [employer] (Maori)
[2018-04-27 21:28] LABS: URINE BILIRUBIN NEGATIVE (NEGATIVE); URINE BLOOD LARGE (NEGATIVE); URINE CLARITY CLOUDY (Clear); URINE COLOR RED (YELLOW); URINE GLUCOSE (UA) 50 mg/dL (NEGATIVE); URINE LEUKOCYTE ESTERASE NEG Leu/uL (Negative); URINE PROTEIN 100 mg/dL (NEGATIVE); URINE UROBILINOGEN 0.2-1.0 mg/dL (0.2-1.0)
--- NOTE | 2018-04-27 21:40 | ED PDOC ---
- Laboratory Results Result Diagrams: 04/27/18 18:39 04/27/18 18:39 Lab Results: Total Bilirubin 0.5 mg/dl (0.2-1.3) 04/27/18 18:39 AST 31 U/L (17-59) 04/27/18 18:39 ALT 42 U/L (21-72) 04/27/18 18:39 Alkaline Phosphatase 96 U/L (38-126) 04/27/18 18:39 Total Protein 8.5 G/DL (6.3-8.2) H 04/27/18 18:39 Albumin 4.9 g/dL (3.5-5.0) 04/27/18 18:39 Globulin 3.6 gm/dL (2.2-3.9) 04/27/18 18:39 Albumin/Globulin Ratio 1.3 (1.0-2.1) 04/27/18 18:39 Urine Color Red (YELLOW) 04/27/18 21:17 Urine Clarity Cloudy (Clear) 04/27/18 21:17 Urine pH 6.0 (5.0-8.0) 04/27/18 21:17 Ur Specific [place] 1.018 (1.003-1.030) 04/27/18 21:17 Urine Protein 100 mg/dL (NEGATIVE) 04/27/18 21:17 Urine Glucose (UA) 50 mg/dL (NEGATIVE) 04/27/18 21:17 Urine Ketones Negative mg/dL (NEGATIVE) 04/27/18 21:17 Urine Blood Large (NEGATIVE) 04/27/18 21:17 Urine Nitrate Negative (NEGATIVE) 04/27/18 21:17 Urine Bilirubin Negative (NEGATIVE) 04/27/18 21:17 Urine Urobilinogen 0.2-1.0 mg/dL (0.2-1.0) 04/27/18 21:17 Ur Leukocyte Esterase Neg Xander/uL (Negative) 04/27/18 21:17 Urine RBC (Auto) 1765 /hpf (0-3) H 04/27/18 21:17 - ECG O2 Sat by Pulse Oximetry: 96 Medical Decision Making Medical Decision Makin:20 CT Maxillofacial FINDINGS: BONES: No acute fracture or aggressive appearing osseous lesion. The mandible is intact. SOFT TISSUES: The soft tissues are unremarkable. SINUSES: There is a prominent polyp or retention cyst measuring approximately 3 x 1.8 cm at the posterior aspect right maxillary sinus. Mild mucous membrane thickening is seen within the left maxillary sinus and ethmoid sinuses and left sphenoid sinus. ORBITS: The orbits are normal. No retrobulbar hematoma or mass. Incidental note is made of a rounded calcific mass measuring possibly 1.6 x 1.3 cm within the deep white matter of the left parietal region. IMPRESSION: No acute osseous abnormality. Inflammatory changes within the paranasal sinuses suspected. Orbits appear intact. Clinical correlation advised. 20:13 CT Head FINDINGS: BRAIN No acute intraparenchymal hemorrhage. No mass lesion. No CT evidence for acute territorial infarct. No midline shift or extra-axial collections. There is a rounded partially calcified mass measuring 1.7 x 1.4 cm at the deep white matter of the left parietal region unchanged from previous study. No acute hemorrhage identified. VENTRICLES: No hydrocephalus. ORBITS: The orbits are unremarkable. SINUSES AND MASTOIDS: There appears to be a polyp or retention cyst and possible air-fluid level of the posterior aspect right maxillary sinus. BONES: No fracture. SOFT TISSUES: Unremarkable. IMPRESSION: No acute intracranial abnormality. Rounded partially calcified mass measuring approximately 1.7 x 1.4 cm at the deep white matter left parietal region. No acute hemorrhage. No acute osseous abnormality. Inflammatory changes suspected within the right maxillary sinus. Clinical correlation advised. 22:42 US renal COMMENTS: The right kidney measures 10.5 x 3.7 x 4.2 cm and the left kidney measures 10.3 x 3.9 x 5.3 cm. The left kidney is inhomogeneous. Mild bilateral renal collecting system fullness. There is no evidence of solid or cystic mass. There is no perinephric fluid. There is no renal calculus. The bladder is not full. Both ureteral jets are not visualized. Incidental note is made of gallbladder stone. The CBD measures 0.3 cm. IMPRESSION: 1. The left kidney is inhomogeneous. 2. Mild bilateral renal collecting system fullness. 3. Incidental note is made of gallstone. CT Abd FINDINGS: LUNG BASES: The lung bases appear clear. A trace right pleural effusion is seen. LIVER: Unremarkable. GALLBLADDER AND BILE DUCTS: Multiple tiny cholelithiasis is identified. No biliary ductal dilatation is evident. PANCREAS: Unremarkable. SPLEEN: Unremarkable. ADRENAL GLANDS: Unremarkable. KIDNEYS, URETERS, AND BLADDER: Both kidneys are normal in size and position. Some bilateral perinephric stranding is present; more pronounced on the right. No identification of renal contusion or laceration. There is no hydronephrosis or hydroureter. No urinary calculi are seen. The urinary bladder is normal in size and configuration. STOMACH AND BOWEL: A small hiatal hernia is present. Unremarkable appearance of the stomach and bowel. No evidence of bowel obstruction. No evidence suggesting enteritis or colitis. APPENDIX: No evidence of acute appendicitis on CT examination. PERITONEUM: No free fluid. No free air. LYMPH NODES: No lymphadenopathy is evident. REPRODUCTIVE: The seminal vesicles appeared normal and symmetrical in size. Mild prostatic enlargement is noted. The prostate gland measured an estimated 5.1 cm transversely. VASCULATURE: No evidence of abdominal aortic aneurysm. BONES: No aggressive appearing osseous lesion. A subtle transverse non-displaced fracture is seen in the postero-lateral aspect of right rib 10. Mild old wedge compression deformity involves the anterior-superior endplate of T12. The estimated loss of vertebral body height is approximately 15-25%. Incidental note is made of bilateral pars defects within L5 with no associated spondylolisthesis. Streak artifact arises from 3 cannulated surgical screws in the left hip. IMPRESSION: 1. Undisplaced transverse fracture in the posterior lateral aspect of right rib 10. 2. Nonspecific bilateral perinephric stranding; more pronounced on the right. No renal laceration or contusion detected. 3. Trace right pleural effusion. 4. Cholelithiasis. 5. A small hiatal hernia is noted. 6. Old anterior-superior wedge compression of T12 as described above. 7. A lateral pars defects within L5. No spondylolisthesis. 8. 3 orthopedic cannulated surgical screws are noted within the left hip. 9. Mild prostatic enlargement. Disposition Doctor Will See Patient In The: Office Counseled Patient/Family Regarding: Diagnosis - Clinical Impression Clinical Impression: Rib pain on right side, Hematuria, Rib fracture - POA Present On Arrival: None - Disposition Referrals: Sanjay Ewing MD [Medical Doctor] - [facility] [Outside] [facility], [facility] [Outside] Disposition: Routine/Home Disposition Time: 01:00 Condition: FAIR Instructions: Rib Fractures in Adults, Blood in the Urine (Hematuria) in Adults, Rib Fracture (DC), Blood in the Urine (Hematuria), Adult (DC) Forms: [employer] (Austrian)
[2018-04-28 01:27] VITALS: BP 133/90; PULSE 89; RESP 18; TEMP 98.2; O2SAT 98
--- NOTE | 2018-04-28 10:50 | RAD ---
Date of service: 04/27/2018 PROCEDURE: Radiographs of the Chest and Right Ribs. HISTORY: s/p fall onto rib COMPARISON: None available. TECHNIQUE: Frontal radiograph of the chest and multiple oblique radiographs of the right ribs were obtained. FINDINGS: RIGHT RIBS: Nondisplaced fracture lateral portion right 8th rib posterior laterally. No additional right rib fracture appreciable. LUNGS: Clear. PLEURA: No pneumothorax or pleural fluid. CARDIOVASCULAR: Normal cardiac size. No pulmonary vascular congestion. No aortic atherosclerotic calcification present OTHER FINDINGS: None. IMPRESSION: Right 8th rib fracture nondisplaced laterally. No additional right rib fracture appreciable.
--- NOTE | 2018-04-28 10:58 | RAD ---
Date of service: 04/27/2018 HISTORY: shortness of breath, cough COMPARISON: Portable chest 03/09/2018. TECHNIQUE: Chest PA and lateral FINDINGS: LUNGS: Left basilar atelectasis or infiltrate is identified minimally. Right lung field appears clear. PLEURA: No significant pleural effusion identified. No pneumothorax apparent. CARDIOVASCULAR: No aortic atherosclerotic calcification present. Normal cardiac size. No pulmonary vascular congestion. OSSEOUS STRUCTURES: No significant abnormalities. VISUALIZED UPPER ABDOMEN: Normal. OTHER FINDINGS: None. IMPRESSION: Limited left basilar atelectasis or infiltrate noted. Remaining lung ochoa clear and stable. No pulmonary vascular congestion.
--- NOTE | 2018-04-28 11:37 | CT ---
Date of service: 04/27/2018 PROCEDURE: CT HEAD WITHOUT CONTRAST. HISTORY: s/p fall and LOC yesterday COMPARISON: 09/05/2010 and 10/11/2015. serial CT scans of the head. TECHNIQUE: Axial computed tomography images were obtained through the head/brain without intravenous contrast. Supplemental Coronal and Sagittal projections created and reviewed. Radiation dose: Total exam DLP = 838.02 mGy-cm. This CT exam was performed using one or more of the following dose reduction techniques: Automated exposure control, adjustment of the mA and/or kV according to patient size, and/or use of iterative reconstruction technique. FINDINGS: HEMORRHAGE: No intracranial hemorrhage. BRAIN: Stable mass basal ganglia, internal capsule on the left adjacent to the genu of the left lateral ventricle. Mass measures 12 x 14.5 mm. No interval change from 09/05/2010. No atrophy or chronic microvascular ischemic changes. VENTRICLES: Unremarkable. No hydrocephalus. CALVARIUM: Unremarkable. PARANASAL SINUSES: Air-fluid level left maxillary sinus consistent with acute sinusitis. MASTOID AIR CELLS: Unremarkable as visualized. No inflammatory changes. OTHER FINDINGS: None. IMPRESSION: Stable mass right basal ganglia/internal capsule compared to prior studies 09/05/2010 and 10/11/2015. Acute left maxillary sinusitis. Concordant results (preliminary interpretation) provided by [employer]. Procedure Completed: 18:44. Preliminary Report: Interpreted and electronically signed: 20:13. Final Interpretation: 11:33. April 28, 2018
--- NOTE | 2018-04-28 11:44 | CT ---
Date of service: 04/27/2018 PROCEDURE: CT MAXILLOFACIAL BONES WITHOUT CONTRAST HISTORY: syncope w/ facial trauma COMPARISON: None.. TECHNIQUE: Contiguous axial CT images of the maxillofacial bones were obtained. Coronal and sagittal reformats were generated. Radiation dose: Total exam DLP = 864.82 mGy-cm. This CT exam was performed using one or more of the following dose reduction techniques: Automated exposure control, adjustment of the mA and/or kV according to patient size, and/or use of iterative reconstruction technique. FINDINGS: NASAL BONES: Unremarkable. ORBITS: Unremarkable. PARANASAL SINUSES/ MASTOIDS: Clear. MAXILLA: Unremarkable. MANDIBLE/ TEMPOROMANDIBULAR JOINTS: Unremarkable. SKULL BASE: Unremarkable. TEMPORAL BONES: Middle ears and mastoid grossly unremarkable. OTHER FINDINGS: Redemonstration of calcified mass adjacent to the left lateral ventricle better visualized on concurrent CT scan Redemonstration of right maxillary sinusitis, acute and more chronic changes in the ethmoid air cells. IMPRESSION: Unremarkable non contrast enhanced CT of the maxillofacial bones. Additional benign and/or incidental findings described above.
--- NOTE | 2018-04-28 12:04 | CT ---
Date of service: 04/27/2018 PROCEDURE: CT Abdomen and Pelvis without intravenous contrast HISTORY: r/o bleed, + hematuria after trauma to R flank COMPARISON: None. TECHNIQUE: Unenhanced. Neither IV nor oral contrast administered Radiation dose: Total exam DLP = 477.40 mGy-cm. This CT exam was performed using one or more of the following dose reduction techniques: Automated exposure control, adjustment of the mA and/or kV according to patient size, and/or use of iterative reconstruction technique. FINDINGS: LOWER THORAX: Small hiatal hernia, patulous esophagus not visualized in its entirety. LIVER: Unremarkable. No gross lesion or ductal dilatation. GALLBLADDER AND BILE DUCTS: Cholelithiasis without CT evidence of acute cholecystitis. PANCREAS: Unremarkable. No gross lesion or ductal dilatation. SPLEEN: Unremarkable. ADRENALS: Unremarkable. No mass. KIDNEYS AND URETERS: Right kidney and ureter: Perinephric stranding consistent with history of recent trauma. No focal extracapsular hematoma or hemorrhage identified. Left kidney and ureter: Unremarkable. No hydronephrosis. No solid mass. VASCULATURE: Unremarkable. No aortic aneurysm. No atherosclerotic calcification or mural plaque present. BOWEL: Constipation, fecal impaction without obstruction. APPENDIX: A normal appendix is visualized in it's entirety. PERITONEUM: Unremarkable. No free fluid. No free air. LYMPH NODES: Unremarkable. No enlarged lymph nodes. BLADDER: Unremarkable. REPRODUCTIVE: Unremarkable. BONES: Nondisplaced posterior lateral right 10th rib fracture. The finding is marked on sagittal series 3/image 26. postoperative changes proximal left femur. No evidence of orthopedic hardware failure. OTHER FINDINGS: None. IMPRESSION: Unilateral, right perinephric stranding particularly about the mid and lower pole regions without discrete extracapsular collection. The findings are consistent with recent trauma to the right flank. Posterior lateral right 10th rib fracture. No free fluid or free air. No visible osseous abnormalities including adjacent vertebral bodies and right ribs. Cholelithiasis without CT evidence of acute cholecystitis. Concordant results (preliminary interpretation) provided by [employer]. Procedure Completed: 19:39. Preliminary Report: Interpreted and electronically signed: 20:54. Final Interpretation: 12:01. April 28, 2018
--- NOTE | 2018-04-28 13:29 | US ---
Date of service: 04/27/2018 PROCEDURE: Ultrasound of the Kidneys HISTORY: s/p trauma to R flank, + hematuria COMPARISON: April 28, 2018 CT abdomen and pelvis.. TECHNIQUE: Sonogram of the kidneys. FINDINGS: RIGHT KIDNEY: Measures: 3.7 x 4.2 x 10.5 cm. Heterogeneous echo characteristics, mild No stone, solid mass lesion or hydronephrosis visualized. LEFT KIDNEY: Measures: cm. Heterogeneous echo characteristics, symmetrical. No stone, solid mass lesion or hydronephrosis visualized. OTHER FINDINGS: Cholelithiasis. Negative study for gallbladder wall thickening, pericholecystic fluid, sonographic Acosta's sign. IMPRESSION: No focal/discrete findings identified on the present study. Concordant findings (preliminary report) provided by [facility].
== END 2018-04-28 01:23 | disposition home or self-care (01) ==
LOC: H.ER 17:29
DX: R31.9 Hematuria, unspecified (principal); R07.9 Chest pain, unspecified; S22.31XA Fracture of one rib, right side, initial encounter for closed fracture